=== PATIENT | male | born 1950 | race Caucasian/White ===

== ENCOUNTER → 2017-11-06 10:17 | Outpatient (CLI) | payer MEDICARE, SELFPAY ==
[2017-11-06 11:03] LABS: Add Manual Diff / Slide Review NO; Eosinophils Percent Auto 3.2 % (2-4); Hemoglobin 14.6 g/dL (13.5-17.5); Lymphocytes Percent Auto 22.9 % (25-40); Mean Corpuscular HGB Conc 34.1 % (30-36); Monocytes Percent Auto 9.9 % (3-14); Neutrophils Absolute Auto 3100 /uL (3000-5900); Platelet Count 280 X10^3/uL (150-400); Red Blood Cell Count 4.57 X10^6/uL (4.5-5.9); Red Cell Distribution Width 13.1 % (11.6-14.8); White Blood Cell Count 4.9 X10^3/uL (4.5-11.0)
[2017-11-06 11:33] LABS: Appearance Urine UA CLEAR; Bilirubin Urine UA NEGATIVE (NEGATIVE); Color Urine UA YELLOW; Glucose Urine UA NEGATIVE (Normal); Ketones Urine UA NEGATIVE (NEGATIVE); Leukocyte Esterase Urine UA NEGATIVE (NEGATIVE); Nitrite Urine UA Negative (Negative); Occult Blood Urine UA NEGATIVE (Negative); Protein Urine UA TRACE (Negative); Urobilinogen Urine UA 0.2 E.U./dL (0.2)
[2017-11-06 11:40] LABS: Alanine Aminotransferase 32 IU/L (21-72); Albumin 4.4 g/dL (3.5-5.0); Albumin Globulin Ratio 1.3 (1.0-2.8); Alkaline Phosphatase 93 U/L (38-126); Aspartate Aminotransferase 35 IU/L (17-59); BUN Creatinine Ratio 15.4 (6-22); Bilirubin Total 0.8 mg/dL (0.2-1.3); Blood Urea Nitrogen 20 mg/dL (9-20); Calcium 11.2 mg/dL (8.4-10.2); Carbon Dioxide 29 mmol/L (22-32); Chloride 99 mmol/L (98-107); Cholesterol 228 mg/dL (140-199); Estimated Glomerular Filt Rate 54.7 mL/min (>60); Globulin 3.4 g/dL (1.7-4.1); Glucose 89 mg/dL (80-110); HDL Cholesterol 66 mg/dL (40-60); HEMOLYSIS < 15 (0-50); LDL Cholesterol Calculated 140 mg/dL (<100); Potassium 4.9 mmol/L (3.4-5.1); Sodium 139 mmol/L (137-145); Total Protein 7.8 g/dL (6.3-8.2); Triglycerides 112 mg/dL (35-150)
[2017-11-06 11:57] LABS: Thyroid Stimulating Hormone 2.88 uIU/mL (0.47-4.68)
== END ==
PROVIDERS: Family Provider Family Medicine; PCP Family Medicine; Visit Provider Family Medicine
DX: E78.5 Hyperlipidemia, unspecified (principal); I10 Essential (primary) hypertension; E83.52 Hypercalcemia; E21.3 Hyperparathyroidism, unspecified; Z12.5 Encounter for screening for malignant neoplasm of prostate
CPT/HCPCS: 36415; 80053; 80061; 81003; 84443; 85025; G0103

== ENCOUNTER → 2018-04-13 13:51 | Outpatient (CLI) | payer MEDICARE, SELFPAY ==
[2018-04-13 14:27] LABS: Hematocrit 42.4 % (41-53); Hemoglobin 14.4 g/dL (13.5-17.5)
[2018-04-13 15:03] LABS: HEMOLYSIS < 15 (0-50); Iron 105 ug/dL (49-181)
[2018-04-13 15:04] LABS: Blood Urea Nitrogen 21 mg/dL (9-20); Calcium 11.3 mg/dL (8.4-10.2); Carbon Dioxide 31 mmol/L (22-32); Chloride 101 mmol/L (98-107); Estimated Glomerular Filt Rate 50.2 mL/min (>60); Glucose 78 mg/dL (80-110); HEMOLYSIS < 15 (0-50); Sodium 141 mmol/L (137-145)
[2018-04-13 15:17] LABS: Percent Iron Saturation 34 % (20-50); Total Iron Binding Capacity 311 ug/dL (261-462); Transferrin 256 mg/dL (206-381)
[2018-04-13 15:39] LABS: Ferritin 85.4 ng/mL (17.9-464)
[2018-04-17 14:05] LABS: Parathyroid Hormone Int 61 pg/mL (14-64)
== END ==
PROVIDERS: Family Provider Family Medicine; PCP Family Medicine; Visit Provider Student in an Organized Health Care Education/Training Program
DX: N05.9 Unspecified nephritic syndrome with unspecified morphologic changes (principal); D50.0 Iron deficiency anemia secondary to blood loss (chronic); D64.9 Anemia, unspecified; N25.81 Secondary hyperparathyroidism of renal origin
CPT/HCPCS: 36415; 80048; 82728; 83540; 83550; 83970; 85014; 85018

== ENCOUNTER → 2018-05-21 14:32 | Outpatient (CLI) | payer MEDICARE, SELFPAY ==
[2018-05-21 16:42] LABS: Collection Time Urine 24 Hours; Creatinine 24 Hour Urine 2083 mg/day (1000-2000); Creatinine Urine Random 83.3 mg/dL; Total Volume Urine 2500 mL
[2018-05-21 17:23] LABS: Calcium 24 Hour Urine 205 mg/day (100-300); Calcium Urine Random 8.2; Collection Time Urine 24 Hours; Total Volume Urine 2500 mL
== END ==
PROVIDERS: Family Provider Family Medicine; PCP Family Medicine; Visit Provider Internal Medicine
DX: E21.0 Primary hyperparathyroidism (principal)
CPT/HCPCS: 82340; 82570

== ENCOUNTER → 2018-06-22 13:00 | Outpatient (CLI) | payer MEDICARE, SELFPAY ==
[2018-06-22 14:36] LABS: Alanine Aminotransferase 29 IU/L (21-72); Albumin 4.5 g/dL (3.5-5.0); Albumin Globulin Ratio 1.4 (1.0-2.8); Alkaline Phosphatase 81 U/L (38-126); Aspartate Aminotransferase 35 IU/L (17-59); BUN Creatinine Ratio 14.6 (6-22); Blood Urea Nitrogen 19 mg/dL (9-20); Carbon Dioxide 26 mmol/L (22-32); Chloride 102 mmol/L (98-107); Cholesterol 204 mg/dL (140-199); Estimated Glomerular Filt Rate 54.7 mL/min (>60); Globulin 3.2 g/dL (1.7-4.1); Glucose 90 mg/dL (80-110); HDL Cholesterol 55 mg/dL (40-60); HEMOLYSIS < 15 (0-50); LDL Cholesterol Calculated 129 mg/dL (<100); Potassium 4.6 mmol/L (3.4-5.1); Sodium 137 mmol/L (137-145); Total Protein 7.7 g/dL (6.3-8.2); Triglycerides 101 mg/dL (35-150)
== END ==
PROVIDERS: Family Provider Family Medicine; PCP Family Medicine; Visit Provider Family Medicine
DX: E78.5 Hyperlipidemia, unspecified (principal); I10 Essential (primary) hypertension
CPT/HCPCS: 80053; 80061

== ENCOUNTER → 2018-07-10 11:52 | Outpatient (CLI) | payer MEDICARE, SELFPAY ==
--- NOTE | 2018-07-10 11:54 | DI.US.S_ITS ---
PROCEDURE: US THYROID COMPARISON: Outside Film, NM, NM PARATHYROID WITH SPECT, 06/04/2018, 13:01. INDICATIONS: Hypercalcemia, parathyroid scan performed 06/04/18 identifying a high probability for presence of parathyroid adenoma inferior to the lower margin of the right thyroid lobe. FINDINGS: Thyroid scanning was performed bilaterally, with attention to the area of prior nuclear medicine concern for parathyroid adenoma inferior to the right thyroid lobe margin. The right thyroid lobe measures 1.2 x 1.6 x 4.6 cm and at its lower third contains a nodule which measures up to 1.4 x 0.9 1.5 cm it is solid, hypoechoic, smoothly marginated, and contains no identifiable internal calcifications. Inferior to the right thyroid lobe is a nodule discrete and separate from the thyroid parenchyma, measuring 1.1 x 0.7 x 0.5 cm that is solid, markedly hypoechoic, smoothly marginated and free of calcifications. This structure is a presumptive parathyroid adenoma. The left thyroid lobe measures 1.3 x 1.2 x 5.0 cm, and contains 3 small nodules one at the upper cava and at the middle, and at the lower third of the gland. This solid nodules measure 4 x 6 x 6 mm superiorly, 5 x 5 x 7 mm at the middle third, and 2 x 2 by 4 mm at the inferior third. IMPRESSION: 1. Parathyroid adenoma identified at the area beneath the inferior tip of the right thyroid lobe corresponding with the abnormality seen on nuclear medicine parathyroid scan 06/04/18. This structure measures up to 1.1 x 0.7 x 0.5 cm and is prominently hypoechoic as is the usual appearance by ultrasound of parathyroid adenomas. 2. Benign-appearing bilateral thyroid nodules are present elsewhere as discussed above. Dictated by: Maldonado Lucas M.D. on 07/12/2018 at 15:17 Approved by: Maldonado Lucas M.D. on 07/12/2018 at 15:22
== END ==
PROVIDERS: Family Provider Family Medicine; PCP Family Medicine; Visit Provider Otolaryngology
DX: D35.1 Benign neoplasm of parathyroid gland (principal); E83.52 Hypercalcemia; E04.2 Nontoxic multinodular goiter
CPT/HCPCS: 76536

== ENCOUNTER → 2018-08-16 14:50 | Outpatient (CLI) | payer MEDICARE, SELFPAY ==
[2018-08-16 16:29] LABS: Calcium 11.4 mg/dL (8.4-10.2); Estimated Glomerular Filt Rate 50.2 mL/min (>60)
[2018-08-18 15:12] LABS: Parathyroid Hormone Int 72 pg/mL (14-64)
== END ==
PROVIDERS: Family Provider Family Medicine; PCP Family Medicine; Visit Provider Otolaryngology
DX: E21.0 Primary hyperparathyroidism (principal); D35.1 Benign neoplasm of parathyroid gland
CPT/HCPCS: 36415; 82310; 82565; 83970

== ENCOUNTER → 2018-08-17 11:07 | Outpatient (CLI) | payer MEDICARE, SELFPAY ==
--- NOTE | 2018-08-17 | DI.CT.S_ITS ---
PROCEDURE: CT SOFT TISSUE NECK WO/W CON INDICATIONS: Primary hyperparathyroidism TECHNIQUE: Before and after the administration of intravenous contrast, 2.0 mm axial sections acquired through the neck and down to the phil. Additional 2.0 mm coronal and sagittal reformats were generated of the contrast enhanced images. For radiation dose reduction, the following was used: automated exposure control. COMPARISON: Outside Film, NM, NM PARATHYROID WITH SPECT, 06/04/2018, 13:01. FINDINGS: Image quality: Excellent. Parathyroid: There is a 8 x 5 x 9 mm nodule adjacent to the posterior-inferior margin of the right lobe of the thyroid gland (series 8, image 51; series 10, image 71) that demonstrates imaging characteristics compatible with parathyroid adenoma. No additional enhancing nodules with delayed washout identified in the neck soft tissues. Thyroid: Thyroid gland has normal size and contour. No thyroid nodules identified. Lymph nodes: No enlarged lymph nodes seen throughout the neck. Vessels: Visualized vasculature appears patent. Neck spaces: Mucosal prominence noted in the lateral right oropharyngeal wall. The nasopharynx, and pharynx demonstrate no mucosal lesions. The vocal cords, false vocal cords, pyriform sinuses, epiglottis, vallecula, and tongue base all appear normal. Extramucosal spaces appear unremarkable. Glands: The parotid and submandibular glands appear normal. Miscellaneous: Visualized lungs appear clear. Superficial soft tissues appear normal. Patient is status post bilateral scleral banding. Bones: No suspicious bony lesions. Spine degenerative disc disease and facet arthropathy. Visualized sinuses and mastoids appear unremarkable. IMPRESSION: 1. 8 x 5 x 9 mm nodule adjacent to the posterior inferior margin of the right lobe of the thyroid gland with imaging characteristics compatible with parathyroid adenoma. 2. Mucosal prominence involving the right lateral oropharyngeal wall. Recommend correlation with direct visualization. Dictated by: Jazmin Lopez MD, PhD on 08/17/2018 at 14:29 Approved by: Jazmin Lopez MD, PhD on 08/17/2018 at 14:41
== END ==
PROVIDERS: PCP Family Medicine; Visit Provider Otolaryngology
DX: E21.0 Primary hyperparathyroidism (principal); E83.52 Hypercalcemia; D35.1 Benign neoplasm of parathyroid gland; E04.1 Nontoxic single thyroid nodule
CPT/HCPCS: 70492; Q9967

== ENCOUNTER → 2018-09-21 14:16 | Outpatient (CLI) | payer MEDICARE, SELFPAY ==
[2018-09-21 15:07] LABS: Calcium 9.3 mg/dL (8.4-10.2)
== END ==
PROVIDERS: PCP Family Medicine; Visit Provider Otolaryngology
DX: E83.52 Hypercalcemia (principal)
CPT/HCPCS: 36415; 82310

== ENCOUNTER → 2019-02-14 11:12 | Outpatient (CLI) | payer MEDICARE, SELFPAY ==
[2019-02-14 12:55] LABS: Alanine Aminotransferase 22 IU/L (21-72); Albumin 4.5 g/dL (3.5-5.0); Albumin Globulin Ratio 1.5 (1.0-2.8); Alkaline Phosphatase 84 U/L (38-126); Aspartate Aminotransferase 30 IU/L (17-59); BUN Creatinine Ratio 18.2 (6-22); Bilirubin Total 0.8 mg/dL (0.2-1.3); Blood Urea Nitrogen 31 mg/dL (9-20); Calcium 9.8 mg/dL (8.4-10.2); Carbon Dioxide 28 mmol/L (22-32); Chloride 99 mmol/L (98-107); Cholesterol 235 mg/dL (140-199); Glucose 92 mg/dL (80-110); HDL Cholesterol 60 mg/dL (40-60); HEMOLYSIS < 15 (0-50); LDL Cholesterol Calculated 149 mg/dL (<100); Sodium 137 mmol/L (137-145); Total Protein 7.5 g/dL (6.3-8.2); Triglycerides 128 mg/dL (35-150)
== END ==
PROVIDERS: PCP Family Medicine; Visit Provider Family Medicine
DX: E78.5 Hyperlipidemia, unspecified (principal); I10 Essential (primary) hypertension
CPT/HCPCS: 36415; 80053; 80061

== ENCOUNTER → 2019-04-04 11:11 | Outpatient (CLI) | payer MEDICARE, SELFPAY ==
[2019-04-04 12:36] LABS: Add Manual Diff / Slide Review NO; Basophils Absolute Auto 100 /uL (0-100); Basophils Percent Auto 1.2 % (0-2); Eosinophils Absolute Auto 200 /uL (0-450); Eosinophils Percent Auto 3.5 % (2-4); Hematocrit 39.9 % (41-53); Hemoglobin 13.4 g/dL (13.5-17.5); Lymphocytes Absolute Auto 1100 /uL (1100-4500); Lymphocytes Percent Auto 23.6 % (25-40); Mean Corpuscular HGB Conc 33.7 % (30-36); Mean Corpuscular Hemoglobin 31.6 PG (26-34); Mean Corpuscular Volume 93.8 fL (80-100); Monocytes Absolute Auto 500 /uL (0-900); Monocytes Percent Auto 10.7 % (3-14); Neutrophils Absolute Auto 2800 /uL (1500-7000); Platelet Count 284 X10^3/uL (150-400); Red Blood Cell Count 4.25 X10^6/uL (4.5-5.9); Red Cell Distribution Width 12.8 % (11.6-14.8); White Blood Cell Count 4.6 X10^3/uL (4.5-11.0)
[2019-04-04 13:04] LABS: Alanine Aminotransferase 25 IU/L (21-72); Albumin 4.6 g/dL (3.5-5.0); Albumin Globulin Ratio 1.8 (1.0-2.8); Alkaline Phosphatase 70 U/L (38-126); Aspartate Aminotransferase 35 IU/L (17-59); BUN Creatinine Ratio 19.2 (6-22); Bilirubin Total 0.8 mg/dL (0.2-1.3); Blood Urea Nitrogen 25 mg/dL (9-20); Calcium 9.6 mg/dL (8.4-10.2); Carbon Dioxide 30 mmol/L (22-32); Chloride 99 mmol/L (98-107); Cholesterol 198 mg/dL (140-199); Estimated Glomerular Filt Rate 54.6 mL/min (>60); Globulin 2.5 g/dL (1.7-4.1); Glucose 91 mg/dL (80-110); HDL Cholesterol 60 mg/dL (40-60); HEMOLYSIS < 15 (0-50); LDL Cholesterol Calculated 115 mg/dL (<100); Potassium 4.8 mmol/L (3.4-5.1); Sodium 138 mmol/L (137-145); Total Protein 7.1 g/dL (6.3-8.2); Triglycerides 115 mg/dL (35-150)
== END ==
PROVIDERS: PCP Family Medicine; Visit Provider Family Medicine
DX: E78.5 Hyperlipidemia, unspecified (principal); F32.9 Major depressive disorder, single episode, unspecified; G47.00 Insomnia, unspecified; I10 Essential (primary) hypertension; N18.9 Chronic kidney disease, unspecified; Z86.73 Personal history of transient ischemic attack (TIA), and cerebral infarction without residual deficits
CPT/HCPCS: 36415; 80053; 80061; 85025

== ENCOUNTER → 2019-06-28 10:07 | Outpatient (CLI) | payer MEDICARE, SELFPAY ==
[2019-06-28 10:49] LABS: Add Manual Diff / Slide Review NO; Basophils Absolute Auto 100 /uL (0-100); Basophils Percent Auto 1.1 % (0-2); Eosinophils Absolute Auto 200 /uL (0-450); Eosinophils Percent Auto 4.1 % (2-4); Hematocrit 39.9 % (41-53); Hemoglobin 13.6 g/dL (13.5-17.5); Lymphocytes Absolute Auto 1200 /uL (1100-4500); Lymphocytes Percent Auto 26.4 % (25-40); Mean Corpuscular Hemoglobin 31.6 PG (26-34); Monocytes Absolute Auto 500 /uL (0-900); Monocytes Percent Auto 11.7 % (3-14); Neutrophils Absolute Auto 2600 /uL (1500-7000); Neutrophils Percent Auto 56.7 % (50-75); Platelet Count 269 X10^3/uL (150-400); Red Blood Cell Count 4.29 X10^6/uL (4.5-5.9); Red Cell Distribution Width 13.1 % (11.6-14.8); White Blood Cell Count 4.5 X10^3/uL (4.5-11.0)
[2019-06-28 11:17] LABS: Alanine Aminotransferase 23 IU/L (<50); Albumin 4.3 g/dL (3.5-5.0); Albumin Globulin Ratio 1.4 (1.0-2.8); Alkaline Phosphatase 78 U/L (38-126); Aspartate Aminotransferase 34 IU/L (17-59); BUN Creatinine Ratio 19.3 (6-22); Bilirubin Total 0.8 mg/dL (0.2-1.3); Blood Urea Nitrogen 27 mg/dL (9-20); Calcium 9.7 mg/dL (8.4-10.2); Carbon Dioxide 26 mmol/L (22-32); Chloride 100 mmol/L (98-107); Cholesterol 195 mg/dL (140-199); Estimated Glomerular Filt Rate 50.1 mL/min (>60); Globulin 3.1 g/dL (1.7-4.1); Glucose 89 mg/dL (80-110); HDL Cholesterol 58 mg/dL (40-60); HEMOLYSIS < 15 (0-50); LDL Cholesterol Calculated 115 mg/dL (<100); Potassium 4.5 mmol/L (3.4-5.1); Sodium 136 mmol/L (137-145); Total Protein 7.4 g/dL (6.3-8.2); Triglycerides 110 mg/dL (35-150)
== END ==
PROVIDERS: PCP Family Medicine; Visit Provider Family Medicine
DX: E78.5 Hyperlipidemia, unspecified (principal); I10 Essential (primary) hypertension; N18.9 Chronic kidney disease, unspecified
CPT/HCPCS: 36415; 80053; 80061; 85025

== ENCOUNTER → 2019-10-11 09:35 | Outpatient (CLI) | payer MEDICARE, SELFPAY ==
[2019-10-11 11:35] LABS: Alanine Aminotransferase 22 IU/L (<50); Albumin 4.4 g/dL (3.5-5.0); Albumin Globulin Ratio 1.4 (1.0-2.8); Alkaline Phosphatase 80 U/L (38-126); Aspartate Aminotransferase 35 IU/L (17-59); BUN Creatinine Ratio 15.8 (6-22); Bilirubin Total 0.7 mg/dL (0.2-1.3); Blood Urea Nitrogen 24 mg/dL (9-20); Calcium 9.5 mg/dL (8.4-10.2); Carbon Dioxide 30 mmol/L (22-32); Chloride 101 mmol/L (98-107); Estimated Glomerular Filt Rate 45.4 mL/min (>60); Globulin 3.1 g/dL (1.7-4.1); Glucose 90 mg/dL (80-110); HEMOLYSIS < 15 (0-50); Phosphorous 3.3 mg/dL (2.3-3.7); Potassium 4.7 mmol/L (3.4-5.1); Sodium 137 mmol/L (137-145); Total Protein 7.5 g/dL (6.3-8.2); Uric Acid 7.1 mg/dL (3.5-8.5)
[2019-10-11 16:51] LABS: Creatinine Urine Random 236.8 mg/dL; Protein (Total) Urine Random 17 mg/dL (0-12); Protein Creatinine Ratio Urine 0.07 GRAM/24H
== END ==
PROVIDERS: PCP Family Medicine; Referring Provider Internal Medicine Nephrology; Visit Provider Internal Medicine Nephrology
DX: N18.3 Chronic kidney disease, stage 3 (moderate) (principal)
CPT/HCPCS: 36415; 80053; 82570; 84100; 84156; 84550

== ENCOUNTER → 2020-01-27 09:58 | Outpatient (CLI) | payer MEDICARE, SELFPAY ==
[2020-01-27 10:22] LABS: Add Manual Diff / Slide Review NO; Basophils Absolute Auto 0 /uL (0-100); Basophils Percent Auto 0.8 % (0-2); Eosinophils Absolute Auto 100 /uL (0-450); Eosinophils Percent Auto 2.7 % (2-4); Hemoglobin 13.1 g/dL (13.5-17.5); Lymphocytes Absolute Auto 1100 /uL (1100-4500); Lymphocytes Percent Auto 19.5 % (25-40); Mean Corpuscular HGB Conc 33.7 % (30-36); Mean Corpuscular Hemoglobin 31.7 PG (26-34); Monocytes Absolute Auto 500 /uL (0-900); Monocytes Percent Auto 8.5 % (3-14); Neutrophils Absolute Auto 3800 /uL (1500-7000); Neutrophils Percent Auto 68.5 % (50-75); Platelet Count 281 X10^3/uL (150-400); Red Blood Cell Count 4.15 X10^6/uL (4.5-5.9); Red Cell Distribution Width 12.5 % (11.6-14.8); White Blood Cell Count 5.5 X10^3/uL (4.5-11.0)
[2020-01-27 10:36] LABS: Alanine Aminotransferase 23 IU/L (<50); Albumin 4.3 g/dL (3.5-5.0); Albumin Globulin Ratio 1.4 (1.0-2.8); Alkaline Phosphatase 80 U/L (38-126); Aspartate Aminotransferase 36 IU/L (17-59); BUN Creatinine Ratio 15.1 (6-22); Bilirubin Total 0.8 mg/dL (0.2-1.3); Blood Urea Nitrogen 22 mg/dL (9-20); Calcium 8.8 mg/dL (8.4-10.2); Carbon Dioxide 27 mmol/L (22-32); Chloride 103 mmol/L (98-107); Cholesterol 186 mg/dL (140-199); Estimated Glomerular Filt Rate 47.6 mL/min (>60); Globulin 3.1 g/dL (1.7-4.1); Glucose 94 mg/dL (80-110); HDL Cholesterol 58 mg/dL (40-60); HEMOLYSIS < 15 (0-50); LDL Cholesterol Calculated 99 mg/dL (<100); Potassium 4.5 mmol/L (3.4-5.1); Sodium 136 mmol/L (137-145); Total Protein 7.4 g/dL (6.3-8.2); Triglycerides 146 mg/dL (35-150)
[2020-01-27 11:07] LABS: Prostate Specific Antigen Scrn 1.06 ng/mL (0.1-4.0)
== END ==
PROVIDERS: PCP Family Medicine; Referring Provider Family Medicine; Visit Provider Family Medicine
DX: E21.3 Hyperparathyroidism, unspecified (principal); E78.5 Hyperlipidemia, unspecified; I10 Essential (primary) hypertension; N18.9 Chronic kidney disease, unspecified; Z12.5 Encounter for screening for malignant neoplasm of prostate
CPT/HCPCS: 36415; 80053; 80061; 85025; G0103

== ENCOUNTER → 2020-11-09 08:59 | Outpatient (CLI) | payer MEDICARE, SELFPAY ==
[2020-11-09 09:59] LABS: Add Manual Diff / Slide Review NO; Basophils Absolute Auto 100 /uL (0-100); Basophils Percent Auto 1.3 % (0-2); Eosinophils Absolute Auto 200 /uL (0-450); Eosinophils Percent Auto 4.4 % (2-4); Hematocrit 39.2 % (41-53); Hemoglobin 13.3 g/dL (13.5-17.5); Lymphocytes Absolute Auto 1100 /uL (1100-4500); Lymphocytes Percent Auto 26.3 % (25-40); Mean Corpuscular HGB Conc 34.1 % (30-36); Mean Corpuscular Hemoglobin 32.3 PG (26-34); Mean Corpuscular Volume 94.7 fL (80-100); Monocytes Absolute Auto 500 /uL (0-900); Monocytes Percent Auto 11.8 % (3-14); Neutrophils Absolute Auto 2400 /uL (1500-7000); Neutrophils Percent Auto 56.2 % (50-75); Platelet Count 282 X10^3/uL (150-400); Red Blood Cell Count 4.14 X10^6/uL (4.5-5.9); Red Cell Distribution Width 12.9 % (11.6-14.8); White Blood Cell Count 4.3 X10^3/uL (4.5-11.0)
[2020-11-09 10:37] LABS: Alanine Aminotransferase 26 IU/L (<50); Albumin 4.1 g/dL (3.5-5.0); Albumin Globulin Ratio 1.4 (1.0-2.8); Alkaline Phosphatase 91 U/L (38-126); Aspartate Aminotransferase 36 IU/L (17-59); BUN Creatinine Ratio 20.2 (6-22); Bilirubin Total 0.5 mg/dL (0.2-1.3); Blood Urea Nitrogen 33 mg/dL (9-20); Calcium 9.8 mg/dL (8.4-10.2); Carbon Dioxide 26 mmol/L (22-32); Chloride 102 mmol/L (98-107); Cholesterol 197 mg/dL (140-199); Estimated Glomerular Filt Rate 41.8 mL/min (>60); Glucose 95 mg/dL (80-110); HDL Cholesterol 69 mg/dL (40-60); HEMOLYSIS < 15 (0-50); LDL Cholesterol Calculated 109 mg/dL (<100); Potassium 4.5 mmol/L (3.4-5.1); Sodium 134 mmol/L (137-145); Total Protein 7.1 g/dL (6.3-8.2); Triglycerides 93 mg/dL (35-150)
[2020-11-09 11:00] LABS: Prostate Specific Antigen Scrn 1.21 ng/mL (0.1-4.0)
== END ==
PROVIDERS: PCP Family Medicine; Referring Provider Family Medicine; Visit Provider Family Medicine
DX: E78.5 Hyperlipidemia, unspecified (principal); Z12.5 Encounter for screening for malignant neoplasm of prostate; I10 Essential (primary) hypertension
CPT/HCPCS: 36415; 80053; 80061; 85025; G0103

== ENCOUNTER → 2021-02-09 09:42 | Outpatient (CLI) | payer MEDICARE, SELFPAY ==
[2021-02-09 10:47] LABS: Alanine Aminotransferase 22 IU/L (<50); Albumin 4.5 g/dL (3.5-5.0); Albumin Globulin Ratio 1.5 (1.0-2.8); Alkaline Phosphatase 91 U/L (38-126); Aspartate Aminotransferase 34 IU/L (17-59); BUN Creatinine Ratio 18.8 (6-22); Bilirubin Total 0.7 mg/dL (0.2-1.3); Blood Urea Nitrogen 27 mg/dL (9-20); Calcium 9.4 mg/dL (8.4-10.2); Carbon Dioxide 29 mmol/L (22-32); Chloride 103 mmol/L (98-107); Cholesterol 219 mg/dL (140-199); Estimated Glomerular Filt Rate 48.2 mL/min (>60); Glucose 99 mg/dL (80-110); HDL Cholesterol 62 mg/dL (40-60); HEMOLYSIS < 15 (0-50); LDL Cholesterol Calculated 127 mg/dL (<100); Potassium 4.3 mmol/L (3.4-5.1); Sodium 136 mmol/L (137-145); Total Protein 7.5 g/dL (6.3-8.2); Triglycerides 148 mg/dL (35-150)
== END ==
PROVIDERS: PCP Family Medicine; Referring Provider Family Medicine; Visit Provider Family Medicine
DX: N18.9 Chronic kidney disease, unspecified (principal); E78.5 Hyperlipidemia, unspecified
CPT/HCPCS: 36415; 80053; 80061

== ENCOUNTER → 2021-03-24 09:25 | Outpatient (CLI) | payer MEDICARE, SELFPAY ==
[2021-03-24 10:59] LABS: COVID19 -Nasal RAPID Negative (Negative)
== END ==
PROVIDERS: PCP Family Medicine; Visit Provider Surgery
DX: Z01.812 Encounter for preprocedural laboratory examination (principal); Z20.822 Contact with and (suspected) exposure to COVID-19
CPT/HCPCS: 87635; C9803

== ENCOUNTER 2021-03-25 11:57 | Day surgery (SDC) | payer MEDICARE, SELFPAY ==
[2021-03-25 12:19] VITALS: BP 130/81; PULSE 80; RESP 16; TEMP 36.4; O2SAT 99; BMI 28.2
[2021-03-25] MEDS: LACTATED RINGERS 1,000 ML 200 ML IV (12:33)
--- NOTE | 2021-03-25 13:03 | PM.HP.1 ---
History of Present Illness History of Present Illness Date Patient Seen: 03/25/21 Time Patient Seen: 13:03 Chief complaint: SDC Narrative: The patient presents for colorectal sreening. Previous examination was approximately 10 years ago. No personal or family history of colon cancer. On further history denies any recent gastrointestinal symptoms. No nausea, vomiting, abdominal pain, loss of appetite, unexplained weight loss, change in bowel habits, diarrhea, constipation, melena, hematochezia, or bright red blood per rectum. Patient History Medical History ADHD (attention deficit hyperactivity disorder) (Unknown) Arthritis (Unknown) Asthma (Unknown) CKD (chronic kidney disease) (Unknown) Depression (Unknown) Detached retina (Unknown) Gastritis Hypercalcemia (09/27/16) Hyperlipemia (Unknown) Hyperparathyroidism (09/27/16) Hypertension (Unknown) Left buttock pain Lumbar region somatic dysfunction Nausea & vomiting Neuropathy (Unknown) Numbness of left foot Pelvic somatic dysfunction Sacral region somatic dysfunction Scoliosis (Unknown) Segmental and somatic dysfunction of abdomen and other regions Stroke (Unknown) Varicose vein of leg Surgical History H/O parathyroidectomy History of cataract removal with insertion of prosthetic lens History of vasectomy Hx of right knee surgery (Unknown) Hx of shoulder surgery (Unknown) Status post colonoscopy Status post eye surgery Status post knee surgery Family & Social History Family History Father Cancer Mother No problems noted. Sister Heart disease Social History: household members significant other Tobacco & Substance use: Smoking Status Never smoker alcohol intake current Substance Use Type does not use Meds Home Medications and Allergies Home Medications Medication Instructions Recorded Confirmed Type albuterol sulfate 90 mcg/actuation 2 puff INHALATION QID PRN #18 gram 10/03/18 02/10/21 Rx aerosol inhaler hydrochlorothiazide 25 mg tablet 25 mg PO DAILY PRN #30 tab 04/09/19 02/10/21 Rx simvastatin 40 mg tablet 40 mg PO DAILY #90 tab 11/10/20 02/10/21 Rx clopidogrel 75 mg tablet See Rx Instructions .ROUTE 12/11/20 02/10/21 Rx .COMPLEX #90 tab citalopram 20 mg tablet See Rx Instructions .ROUTE 03/11/21 Rx .COMPLEX #90 tab lisinopril 2.5 mg tablet See Rx Instructions .ROUTE 03/11/21 Rx .COMPLEX #90 tab trazodone 50 mg tablet See Rx Instructions .ROUTE 03/15/21 Rx .COMPLEX #90 tab Allergies Allergy/AdvReac Type Severity Reaction Status Date / Time atomoxetine [From STRATTERA] Allergy Unknown Verified 03/25/21 12:16 Exam Vital Signs (past 8 hours): - 03/25/21 12:19 Temperature 97.5 F L Pulse Rate 80 Respiratory Rate 16 Blood Pressure 130/81 Pulse Oximetry 99 Oxygen Delivery Method Room Air Narrative Exam Narrative: Constitutional-he is oriented to person, place and time. No apparent distress Cardiovascular- regular rate, no peripheral edema Pulmonary-unlabored respiratory effort, no audible wheezing Abdominal-soft, non-tender, non-distended Musculoskeletal-no cyanosis or clubbing Neurological-nonfocal, normal strength throughout, Skin-warm and dry Assessment & Plan Assessment & Plan narrative: The patient requires colorectal screening and colonoscopy is recommended. Technical details were discussed. Risks, benefits, alternatives explained. Risks including but not limited to myocardial infarction, aspiration, bleeding, pain, missed lesion, incomplete examination, need for further radiographic studies, colonic perforation, and need for major abdominal surgery were discussed. All questions were answered to their satisfaction, and they are in agreement with this plan. Time Spent With Patient Critical Care time: I spent a total of [] minutes of critical care time on this patient's care today; this time is exclusive of procedural time.
--- NOTE | 2021-03-25 13:31 | PM.OP.COLON ---
Operative Date/Time/Diagnoses Date of procedure: 03/25/21 Time of procedure: 13:31 Pre-op diagnosis: Screening colonoscopy Post-op diagnosis: same Procedure & Clinicians Study performed: Colonoscopy Same procedure as scheduled: Yes Indications: Screening Surgeon: Jeffrey Benjamin Procedure Notes Procedure in detail: Medications: Conscious sedation using 6mg IV midazolam and 150mcg IV of fentanyl The history and physical was performed/updated and the patient is ASA class is 2. The procedure was discussed in detail with the patient. Potential risks complications including infection, bleeding, missed diagnosis, perforation, need for surgery, and were explained. Their questions were answered and informed consent was obtained. Patient was brought to the procedure room and placed standard monitoring equipment. The patient's vital signs were monitored continuously throughout the entire procedure. Prior to starting time-out was performed. The patient was placed in the left lateral recumbent position. Procedural sedation was administered. Examination began with a thorough inspection of the perianal area there was no evidence of fissures, fistulae, external hemorrhoids or cutaneous malignancy. The colonoscopy scope was then placed into the anal canal and was advanced to the cecum, which was identified by the ileocecal valve, the appendiceal orifice and the confluence of the taenia. The scope was then slowly withdrawn examining colon thoroughly in all directions, irrigating it of any residual stool. FINDINGS 1. 5 Mm polyp within the transverse colon within a deep mucosal fold. Appears benign but was unable to retrieve biopsy forceps secondary to its position 2. Sigmoid diverticulosis 3. Grade 2 internal hemorrhoids The patient tolerated the procedure well. They will be discharged once criteria are met. The prep was of good/excellent quality. The withdrawl time was 7 minutes. The sedation time was 25 minutes. Specimen(s): none sent Complications: none Impression: colonic polyp Post-procedure Recommendations: Colonoscopy in 5 years Disposition: same day surgery
[2021-03-25] MEDS: MIDAZOLAM 5 MG/5 ML VIAL IV (13:33)
[2021-03-25 13:34] VITALS: BP 123/84; PULSE 66; RESP 14; TEMP 36.8; O2SAT 95
[2021-03-25] MEDS: fentaNYL 250 MCG/5 ML INJ IV (13:34)
[2021-03-25 13:39] VITALS: BP 111/80; PULSE 66; RESP 12; O2SAT 95
[2021-03-25 13:45] VITALS: BP 120/87; PULSE 70; RESP 15; O2SAT 96
[2021-03-25 13:47] VITALS: BP 124/82; PULSE 70; RESP 14; TEMP 36.8; O2SAT 96
== END 2021-03-25 14:01 | disposition home or self-care (01) ==
PROVIDERS: PCP Family Medicine; Referring Provider Surgery; Visit Provider Surgery
PROC: 0DJD8ZZ Inspection of Lower Intestinal Tract, Via Natural or Artificial Opening Endoscopic (ICD-10-PCS; CPT 45378; principal; 2021-03-25 13:00)
DX: Z12.11 Encounter for screening for malignant neoplasm of colon (principal); K57.30 Diverticulosis of large intestine without perforation or abscess without bleeding; K64.1 Second degree hemorrhoids; K63.5 Polyp of colon
CPT/HCPCS: G0121; 99152; 99153; J2250; J3010

== ENCOUNTER → 2021-10-19 09:49 | Outpatient (CLI) | payer MEDICARE, SELFPAY ==
[2021-10-19 10:54] LABS: Add Manual Diff / Slide Review NO; Basophils Absolute Auto 100 /uL (0-100); Basophils Percent Auto 1.2 % (0-2); Eosinophils Absolute Auto 200 /uL (0-450); Eosinophils Percent Auto 3.9 % (2-4); Hematocrit 39.4 % (41-53); Hemoglobin 13.6 g/dL (13.5-17.5); Lymphocytes Absolute Auto 1000 /uL (1100-4500); Mean Corpuscular HGB Conc 34.5 % (30-36); Mean Corpuscular Hemoglobin 32.1 PG (26-34); Mean Corpuscular Volume 92.9 fL (80-100); Monocytes Absolute Auto 500 /uL (0-900); Monocytes Percent Auto 10.2 % (3-14); Neutrophils Absolute Auto 2900 /uL (1500-7000); Neutrophils Percent Auto 62.7 % (50-75); Platelet Count 267 X10^3/uL (150-400); Red Blood Cell Count 4.24 X10^6/uL (4.5-5.9); Red Cell Distribution Width 12.9 % (11.6-14.8); White Blood Cell Count 4.6 X10^3/uL (4.5-11.0)
[2021-10-19 11:27] LABS: Alanine Aminotransferase 23 IU/L (<50); Albumin 4.4 g/dL (3.5-5.0); Albumin Globulin Ratio 1.5 (1.0-2.8); Alkaline Phosphatase 89 U/L (38-126); Aspartate Aminotransferase 32 IU/L (17-59); BUN Creatinine Ratio 17.2 (6-22); Bilirubin Total 0.7 mg/dL (0.2-1.3); Blood Urea Nitrogen 28 mg/dL (9-20); Calcium 9.5 mg/dL (8.4-10.2); Carbon Dioxide 27 mmol/L (22-32); Chloride 103 mmol/L (98-107); Cholesterol 198 mg/dL (140-199); Estimated Glomerular Filt Rate 44 mL/min (>60); Globulin 2.9 g/dL (1.7-4.1); Glucose 93 mg/dL (80-110); HDL Cholesterol 62 mg/dL (40-60); HEMOLYSIS < 15 (0-50); LDL Cholesterol Calculated 114 mg/dL (<100); Potassium 4.4 mmol/L (3.4-5.1); Sodium 138 mmol/L (137-145); Total Protein 7.3 g/dL (6.3-8.2); Triglycerides 110 mg/dL (35-150)
[2021-10-19 11:56] LABS: Prostate Specific Antigen Scrn 1.21 ng/mL (0.1-4.0)
== END ==
PROVIDERS: PCP Family Medicine; Referring Provider Family Medicine; Visit Provider Family Medicine
DX: E78.2 Mixed hyperlipidemia (principal); Z12.5 Encounter for screening for malignant neoplasm of prostate; I10 Essential (primary) hypertension; K52.9 Noninfective gastroenteritis and colitis, unspecified; N18.32 Chronic kidney disease, stage 3b; N25.0 Renal osteodystrophy
CPT/HCPCS: 36415; 80053; 80061; 85025; G0103

== ENCOUNTER 2021-12-06 12:35 | Emergency (ER) | payer MEDICARE, SELFPAY ==
[2021-12-06 13:12] VITALS: BP 143/80; PULSE 61; RESP 22; TEMP 37.2; O2SAT 98; BMI 28.8
--- NOTE | 2021-12-06 13:16 | DI.RAD.S_ITS ---
PROCEDURE: XR CHEST 2V INDICATIONS: cough TECHNIQUE: 2 views of the chest were acquired. COMPARISON: [facility], , CHEST 2 VIEW, 06/07/2016, 15:08. FINDINGS: Surgical changes and devices: None. Lungs and pleura: Lungs are clear. No pleural effusions or pneumothorax. Mediastinum: Mediastinal contours are normal. Heart size is normal. Bones and chest wall: No suspicious bony abnormalities. There is S shaped scoliosis of the thoracic spine. Soft tissues appear unremarkable. IMPRESSION: No acute cardiopulmonary abnormality. Dictated by: Baltazar Mckeon M.D. on 12/06/2021 at 12:55 Approved by: Baltazar Mckeon M.D. on 12/06/2021 at 12:55
[2021-12-06 14:02] LABS: COVID19 -Nasal RAPID Negative (Negative)
--- NOTE | 2021-12-06 14:58 | ED_ITS ---
HPI - URI/Sore Throat <DARRYL Lassiter - Last Filed: 12/06/21 15:03> General Chief Complaint: Upper Respiratory Symptoms Stated Complaint: has a cold for over a week- not getting better Time Seen by Provider: 12/06/21 14:41 Source: patient Mode of arrival: Family Vehicle History of Present Illness HPI Narrative: This is a 71 year presents to the emergency department complaining of cough and congestion for two weeks after a viral illness. Patient denies any facial tenderness, denies any nausea vomiting or recent fever. He endorses having phlegm in the morning and coughs throughout the day. He states that he has had seasonal allergies as but not in the past. Denies any history of COPD, CHF, or smoking. He denies significant fatigue, shortness of breath, shortness of breath with exertion. He denies any difficulty swallowing, weakness, lightheadedness, sinus tenderness, or sore throat. States that he has tested himself for COVID multiple times and they were negative. Related Data Previous Rx's Medication Instructions Recorded trazodone 50 mg tablet See Rx Instructions .Route 09/06/21 .COMPLEX #90 tabs citalopram 20 mg tablet See Rx Instructions .Route 09/07/21 .COMPLEX #90 tabs clopidogrel 75 mg tablet See Rx Instructions .Route 09/07/21 .COMPLEX #90 tabs lisinopril 2.5 mg tablet See Rx Instructions .Route 09/07/21 .COMPLEX #90 tabs atorvastatin 20 mg tablet 20 mg PO BEDTIME #90 tabs 11/19/21 benzocaine 15 mg-menthol 3.6 mg 1 roland mucous membrane Q2-4H PRN 12/06/21 lozenges (Cepacol Sore Throat sore throat #16 ea (benzocaine-menthol)) cetirizine 10 mg tablet 10 mg PO BEDTIME congestion #30 12/06/21 tabs fluticasone propionate 50 1 spray intranasal BID PRN nasal 12/06/21 mcg/actuation nasal congestion 2 weeks #16 grams spray,suspension prednisone 20 mg tablet 40 mg PO DAILY 5 days #10 tabs 12/06/21 Allergies Allergy/AdvReac Type Severity Reaction Status Date / Time atomoxetine [From STRATTERA] Allergy Unknown Verified 12/06/21 13:16 Review of Systems <DARRYL Lassiter - Last Filed: 12/06/21 15:03> Review of Systems Narrative: General: denies fever, chills, malaise, sweats, fatigue Head/Neck: denies headache, neck pain, dizziness Eyes: denies visual changes, eye pain Cardio: denies chest pain, palpitations, edema Respiratory: denies dyspnea, endorses congestion, a productive cough in the mornings, denies shortness of breath GI: denies abdominal pain, nausea, vomiting, or diarrhea : denies dysuria, hematuria, urinary retention, frequency or incontinence MSK: denies joint pain, muscle weakness Skin: denies rash, itching, skin lesions or other Neuro: denies numbness, tingling Patient History <DARRYL Lassiter - Last Filed: 12/06/21 15:03> Medical History ADHD (attention deficit hyperactivity disorder) (Unknown) Arthritis (Unknown) Asthma (Unknown) Chronic diarrhea CKD (chronic kidney disease) (Unknown) Depression (Unknown) Detached retina (Unknown) Gastritis Hypercalcemia (09/27/16) Hyperlipemia (Unknown) Hyperparathyroidism (09/27/16) Hypertension (Unknown) Left buttock pain Lumbar region somatic dysfunction Nausea & vomiting Neuropathy (Unknown) Numbness of left foot Pelvic somatic dysfunction Sacral region somatic dysfunction Scoliosis (Unknown) Screening for prostate cancer Segmental and somatic dysfunction of abdomen and other regions Stroke (Unknown) Varicose vein of leg Surgical History H/O parathyroidectomy History of cataract removal with insertion of prosthetic lens History of vasectomy Hx of right knee surgery (Unknown) Hx of shoulder surgery (Unknown) Status post colonoscopy Status post eye surgery Status post knee surgery Family History Father Cancer Mother No problems noted. Sister Heart disease Social History household members: significant other Smoking Status: Never smoker alcohol intake: current Smoking Status: Never smoker alcohol intake frequency: 0-2 drinks per day Substance Use Type: does not use Exam <DARRYL Lassiter - Last Filed: 12/06/21 15:03> Narrative Exam Narrative: Independently reviewed vitals signs and nursing notes. General: Awake, alert, nontoxic, no cardiorespiratory distress Head/Neck: Atraumatic, neck supple without anterior cervical lymphadenopathy, no sinus tenderness Eyes: EOMI, conjunctiva normal Nose: nares patent, no rhinorrhea Mouth/Throat: moist mucus membranes, posterior pharynx without erythema or lesion Cardio: Regular rate and rhythm, no peripheral edema, normotensive, warm extremities with palpable radial pulses Respiratory: respirations unlabored without wheezing, stridor, or rales. No retractions, hypoxia or tachypnea occasional cough GI: Abdomen soft, nontender to palpation x4 quadrants, no guarding or rebound tenderness MSK: Moves all extremities, neurovascularly intact, range of motion without deficit Skin: Normal capillary refill, no rash Neuro: Normal speech and cognition, normal gait Initial Vital Signs Initial Vital Signs: Vital Signs Temperature 98.9 F 12/06/21 13:12 Pulse Rate 61 12/06/21 13:12 Respiratory Rate 22 12/06/21 13:12 Blood Pressure 143/80 H 12/06/21 13:12 Pulse Oximetry 98 12/06/21 13:12 Oxygen Delivery Method 12/06/21 13:12 <Coco Giron DO - Last Filed: 12/07/21 07:34> Initial Vital Signs Initial Vital Signs: Vital Signs Temperature 98.9 F 12/06/21 13:12 Pulse Rate 61 12/06/21 13:12 Respiratory Rate 22 12/06/21 13:12 Blood Pressure 143/80 H 12/06/21 13:12 Pulse Oximetry 98 12/06/21 13:12 Oxygen Delivery Method 12/06/21 13:12 Course <DARRYL Lassiter - Last Filed: 12/06/21 15:03> Orders Ordered: ED Orders 12/06/21 13:14 COVID19 -Nasal RAPID/Pre-Proc Stat 12/06/21 13:16 XR chest 2V Stat Vital Signs Vital signs: Vital Signs - 8 hr 12/06/21 13:12 Temperature 98.9 F Pulse Rate 61 Respiratory Rate 22 Blood Pressure 143/80 H Pulse Oximetry 98 Oxygen Delivery Method Room Air <Coco Giron DO - Last Filed: 12/07/21 07:34> Orders Ordered: ED Orders 12/06/21 13:14 COVID19 -Nasal RAPID/Pre-Proc Stat 12/06/21 13:16 XR chest 2V Stat Vital Signs Vital signs: Vital Signs - 8 hr 12/06/21 13:12 Temperature 98.9 F Pulse Rate 61 Respiratory Rate 22 Blood Pressure 143/80 H Pulse Oximetry 98 Oxygen Delivery Method Room Air MDM - URI/Sore Throat <DARRYL Lassiter - Last Filed: 12/06/21 15:03> Lab Data Labs: Lab Results 12/06/21 Range/Units 13:14 SARS-CoV-2 (PCR) Negative (Negative) Imaging Data Chest x-ray: Radiologist's Impression: PROCEDURE:? XR CHEST 2V ? INDICATIONS:? cough ? TECHNIQUE:? 2 views of the chest were acquired.? ? COMPARISON:? [facility], , CHEST 2 VIEW, 06/07/2016, 15:08. ? FINDINGS:? ? Surgical changes and devices:? None.? ? Lungs and pleura:? Lungs are clear.? No pleural effusions or pneumothorax.? ? Mediastinum:? Mediastinal contours are normal.? Heart size is normal.? ? Bones and chest wall:? No suspicious bony abnormalities.? There is S shaped scoliosis of the thoracic spine.? Soft tissues appear unremarkable.? ? IMPRESSION:? No acute cardiopulmonary abnormality. ? ? Dictated by: Baltazar Mckeon M.D. on 12/06/2021 at 12:55 ? ? Approved by: Baltazar Mckeon M.D. on 12/06/2021 at 12:55 ? [facility] Narrative Medical decision making narrative: This is a 71 presents to the emergency department complaining of cough, congestion, and increased phlegm over the last two weeks. He states it started with a viral illness. His COVID PCR is negative, his two view chest x-ray shows no acute cardiopulmonary abnormality. On exam, patient does not have any tachypnea, hypoxia, abnormal breath sounds, or any signs of cardio respiratory distress. This is most likely bronchitis from a viral cause, could also be seasonal allergies. He was prescribed five days of prednisone, cetirizine at night, fluticasone b.i.d., and cepacol throat lozenges. Encouraged to return to the emergency department for any new or worsening symptoms, stay hydrated. Patient is appropriate and amenable to discharge home. Vital signs are stable on repeat examination is unremarkable. Patient has been informed of results. Patient has been given strict return to ER precautions for any new or worsening symptoms. Patient understands to follow up closely with outpatient providers as instructed. Patient understands plan and agrees to discharge home. All questions and concerns answered at this time. <Coco Giron, DO - Last Filed: 12/07/21 07:34> Lab Data Labs: Lab Results 12/06/21 Range/Units 13:14 SARS-CoV-2 (PCR) Negative (Negative) Discharge Plan Departure Patient Disposition: Home Clinical Impression: Acute bronchitis Qualifiers: Bronchitis organism: unspecified organism Qualified Code(s): J20.9 - Acute bronchitis, unspecified Instructions: Acute Bronchitis Activity Restrictions/Additional Instructions: *You have been diagnosed with bronchitis. I am sorry for your symptoms, please take the steroids for the next five days, use Flonase morning and night, cetirizine at night for nasal congestion. Then you can try throat lozenges as needed for your cough and sore throat. Try stay hydrated, take Tylenol or ibuprofen if you feel hot/cold. Your x-ray does not show any pneumonia today, an antibiotic will not be helpful. Hopefully this will help feel better over the next few days. Return for any new or worsening symptoms. Your COVID test was negative. Your insurance did not want to cover these prescriptions but hopefully since they are generic it will be low-cost. *What to do: *Please continue to take your regular medications as directed. [x ] New medication prescriptions sent to your pharmacy: [[facility] ] [ ] New medication written as a paper prescription [ ] No new medications given *Please follow up with your primary care provider in 2-3 days, call for an appointment. Let them know you were seen in the Emergency Department and that we asked that you be seen for follow-up. We will electronically transmit a record of today's note if your PCP is in our system *If you do not have a primary care provider please contact [phone] to est [facility] with one of the [facility] primary care providers. *Return to Emergency Department if you should have any new, worsening or concerning symptoms, such as [fever greater than 101F, chills, worsening pain, persistent vomiting or other bothersome symptoms] Prescriptions: New prednisone 20 mg tablet 40 mg PO DAILY 5 Days Qty: 10 0RF fluticasone propionate 50 mcg/actuation spray,suspension 1 spray intranasal BID PRN (Reason: nasal congestion) 14 Days Qty: 16 0RF Rx Instructions: administer into each nostril Cepacol Sore Throat (chiara-men) 15-3.6 mg lozenge 1 roland mucous membrane Q2-4H PRN (Reason: sore throat) Qty: 16 0RF cetirizine 10 mg tablet 10 mg PO BEDTIME Qty: 30 0RF No Action trazodone 50 mg tablet See Rx Instructions .ROUTE .COMPLEX Qty: 90 3RF Dose Instruction: TAKE 1 TABLET BY MOUTH AT BEDTIME NEEDED FOR INSOMNIA Rx Instructions: TAKE 1 TABLET BY MOUTH AT BEDTIME NEEDED FOR INSOMNIA lisinopril 2.5 mg tablet See Rx Instructions .ROUTE .COMPLEX Qty: 90 1RF Dose Instruction: TAKE 1 TABLET BY MOUTH EVERY DAY Rx Instructions: TAKE 1 TABLET BY MOUTH EVERY DAY citalopram 20 mg tablet See Rx Instructions .ROUTE .COMPLEX Qty: 90 1RF Dose Instruction: TAKE 1 TABLET BY MOUTH EVERY DAY Rx Instructions: TAKE 1 TABLET BY MOUTH EVERY DAY clopidogrel 75 mg tablet See Rx Instructions .ROUTE .COMPLEX Qty: 90 3RF Dose Instruction: TAKE 1 TABLET BY MOUTH EVERY DAY Rx Instructions: TAKE 1 TABLET BY MOUTH EVERY DAY atorvastatin 20 mg tablet 20 mg PO BEDTIME Qty: 90 3RF Referrals: Surjit Coello DO [Primary Care Provider] - Visit Report Forms: Patient Portal/API <Coco Giron DO - Last Filed: 12/07/21 07:34> Cosign ED Attending [place] Attestation: I was immediately available in the department for consultation. Documentation has been reviewed. I agree with assessment and plan.
[2021-12-06 14:59] VITALS: BP 130/83; PULSE 65; RESP 16; O2SAT 96
== END 2021-12-06 15:00 | disposition home or self-care (01) ==
PROVIDERS: Emergency Medicine; Emergency Provider Nurse Practitioner Critical Care Medicine; PCP Family Medicine
DX: J20.9 Acute bronchitis, unspecified (principal); Z20.822 Contact with and (suspected) exposure to COVID-19
CPT/HCPCS: 71046; 87635; 99281; 99283; C9803

== ENCOUNTER → 2022-03-17 09:27 | Outpatient (CLI) | payer MEDICARE, SELFPAY ==
[2022-03-17 10:06] LABS: Add Manual Diff / Slide Review NO; Basophils Absolute Auto 100 /uL (0-100); Basophils Percent Auto 1.1 % (0-2); Eosinophils Absolute Auto 100 /uL (0-450); Hematocrit 40.4 % (41-53); Hemoglobin 13.8 g/dL (13.5-17.5); Lymphocytes Absolute Auto 1000 /uL (1100-4500); Lymphocytes Percent Auto 20.7 % (25-40); Mean Corpuscular HGB Conc 34.2 % (30-36); Mean Corpuscular Hemoglobin 32.1 PG (26-34); Monocytes Absolute Auto 500 /uL (0-900); Monocytes Percent Auto 9.9 % (3-14); Neutrophils Absolute Auto 3200 /uL (1500-7000); Neutrophils Percent Auto 65.3 % (50-75); Platelet Count 326 X10^3/uL (150-400); Red Cell Distribution Width 13.4 % (11.6-14.8); White Blood Cell Count 4.8 X10^3/uL (4.5-11.0)
[2022-03-17 10:39] LABS: Alanine Aminotransferase 26 IU/L (<50); Albumin 4.6 g/dL (3.5-5.0); Albumin Globulin Ratio 1.4 (1.0-2.8); Alkaline Phosphatase 88 U/L (38-126); Aspartate Aminotransferase 46 IU/L (17-59); BUN Creatinine Ratio 13.9 (6-22); Blood Urea Nitrogen 20 mg/dL (9-20); Calcium 9.3 mg/dL (8.4-10.2); Carbon Dioxide 26 mmol/L (22-32); Chloride 101 mmol/L (98-107); Cholesterol 190 mg/dL (140-199); Estimated Glomerular Filt Rate 51 mL/min (>60); Globulin 3.4 g/dL (1.7-4.1); Glucose 87 mg/dL (80-110); HDL Cholesterol 59 mg/dL (40-60); HEMOLYSIS 50 (0-50); LDL Cholesterol Calculated 108 mg/dL (<100); Potassium 4.1 mmol/L (3.4-5.1); Sodium 136 mmol/L (137-145); Triglycerides 114 mg/dL (35-150)
[2022-03-17 11:09] LABS: Prostate Specific Antigen Scrn 1.37 ng/mL (0.1-4.0)
== END ==
PROVIDERS: PCP Family Medicine; Referring Provider Family Medicine; Visit Provider Family Medicine
DX: I10 Essential (primary) hypertension (principal); E78.2 Mixed hyperlipidemia; Z12.5 Encounter for screening for malignant neoplasm of prostate; N18.32 Chronic kidney disease, stage 3b
CPT/HCPCS: 36415; 80053; 80061; 85025; G0103

== ENCOUNTER → 2023-03-20 14:05 | Outpatient (CLI) | payer MEDICARE, SELFPAY ==
[2023-03-20 14:56] LABS: Add Manual Diff / Slide Review NO; Basophils Absolute Auto 100 /uL (0-100); Eosinophils Absolute Auto 400 /uL (0-450); Eosinophils Percent Auto 6.7 % (2-4); Hematocrit 37.9 % (41-53); Hemoglobin 12.8 g/dL (13.5-17.5); Lymphocytes Absolute Auto 1000 /uL (1100-4500); Lymphocytes Percent Auto 18.5 % (25-40); Mean Corpuscular HGB Conc 33.9 % (30-36); Mean Corpuscular Hemoglobin 31.7 PG (26-34); Mean Corpuscular Volume 93.3 fL (80-100); Monocytes Absolute Auto 800 /uL (0-900); Neutrophils Absolute Auto 3200 /uL (1500-7000); Neutrophils Percent Auto 59.8 % (50-75); Platelet Count 297 X10^3/uL (150-400); Red Blood Cell Count 4.06 X10^6/uL (4.5-5.9); Red Cell Distribution Width 13.2 % (11.6-14.8); White Blood Cell Count 5.4 X10^3/uL (4.5-11.0)
[2023-03-20 15:11] LABS: HEMOLYSIS < 15 (0-50)
[2023-03-20 15:19] LABS: Alanine Aminotransferase 29 IU/L (<50); Albumin Globulin Ratio 1.5 (1.0-2.8); Alkaline Phosphatase 107 U/L (38-126); Aspartate Aminotransferase 36 IU/L (17-59); BUN Creatinine Ratio 13.5 (6-22); Bilirubin Total 0.9 mg/dL (0.2-1.3); Blood Urea Nitrogen 21 mg/dL (9-20); Calcium 9.4 mg/dL (8.4-10.2); Carbon Dioxide 26 mmol/L (22-32); Chloride 101 mmol/L (98-107); Cholesterol 170 mg/dL (140-199); Estimated Glomerular Filt Rate 46 mL/min (>60); Globulin 2.7 g/dL (1.7-4.1); Glucose 93 mg/dL (80-110); HDL Cholesterol 58 mg/dL (40-60); LDL Cholesterol Calculated 93 mg/dL (<100); Potassium 4.2 mmol/L (3.4-5.1); Sodium 135 mmol/L (137-145); Total Protein 6.7 g/dL (6.3-8.2); Triglycerides 93 mg/dL (35-150)
[2023-03-21 16:31] LABS: Prostate Specific Antigen Scrn 1.37 ng/mL (0.1-4.0)
== END ==
PROVIDERS: PCP Family Medicine; Referring Provider Family Medicine; Visit Provider Family Medicine
DX: N18.9 Chronic kidney disease, unspecified (principal); Z12.5 Encounter for screening for malignant neoplasm of prostate; E78.5 Hyperlipidemia, unspecified; I10 Essential (primary) hypertension
CPT/HCPCS: 36415; 80053; 80061; 85025; G0103

== ENCOUNTER → 2023-06-16 10:35 | Outpatient (CLI) | payer MEDICARE, SELFPAY ==
[2023-06-16 11:53] LABS: Add Manual Diff / Slide Review NO; Basophils Absolute Auto 100 /uL (0-100); Basophils Percent Auto 1.3 % (0-2); Eosinophils Absolute Auto 100 /uL (0-450); Eosinophils Percent Auto 3.1 % (2-4); Hematocrit 40.3 % (41-53); Hemoglobin 13.7 g/dL (13.5-17.5); Lymphocytes Absolute Auto 900 /uL (1100-4500); Lymphocytes Percent Auto 20.2 % (25-40); Mean Corpuscular HGB Conc 33.9 % (30-36); Mean Corpuscular Hemoglobin 31.9 PG (26-34); Mean Corpuscular Volume 94.1 fL (80-100); Monocytes Absolute Auto 500 /uL (0-900); Monocytes Percent Auto 11.3 % (3-14); Neutrophils Absolute Auto 3000 /uL (1500-7000); Neutrophils Percent Auto 64.1 % (50-75); Platelet Count 295 X10^3/uL (150-400); Red Blood Cell Count 4.28 X10^6/uL (4.5-5.9); White Blood Cell Count 4.6 X10^3/uL (4.5-11.0)
[2023-06-16 12:08] LABS: Alanine Aminotransferase 27 IU/L (<50); Albumin 4.1 g/dL (3.5-5.0); Albumin Globulin Ratio 1.2 (1.0-2.8); Alkaline Phosphatase 93 U/L (38-126); Aspartate Aminotransferase 29 IU/L (17-59); BUN Creatinine Ratio 16.6 (6-22); Bilirubin Total 0.8 mg/dL (0.2-1.3); Blood Urea Nitrogen 28 mg/dL (9-20); Calcium 9.7 mg/dL (8.4-10.2); Carbon Dioxide 29 mmol/L (22-32); Chloride 101 mmol/L (98-107); Estimated Glomerular Filt Rate 42 mL/min (>60); Globulin 3.3 g/dL (1.7-4.1); Glucose 93 mg/dL (80-110); HEMOLYSIS < 15 (0-50); Potassium 4.1 mmol/L (3.4-5.1); Sodium 135 mmol/L (137-145); Total Protein 7.4 g/dL (6.3-8.2)
== END ==
LOC: LAB 10:36
PROVIDERS: PCP Family Medicine; Referring Provider Family Medicine; Visit Provider Family Medicine
DX: I10 Essential (primary) hypertension (principal); D64.9 Anemia, unspecified; N18.9 Chronic kidney disease, unspecified
CPT/HCPCS: 36415; 80053; 85025

== ENCOUNTER → 2023-10-05 10:09 | Outpatient (CLI) | payer MEDICARE, SELFPAY ==
[2023-10-05 11:06] LABS: Add Manual Diff / Slide Review NO; Basophils Absolute Auto 100 /uL (0-100); Basophils Percent Auto 1.3 % (0-2); Eosinophils Absolute Auto 200 /uL (0-450); Eosinophils Percent Auto 3.3 % (2-4); Hematocrit 40.3 % (41-53); Hemoglobin 13.6 g/dL (13.5-17.5); Lymphocytes Absolute Auto 1400 /uL (1100-4500); Lymphocytes Percent Auto 24.3 % (25-40); Mean Corpuscular HGB Conc 33.7 % (30-36); Mean Corpuscular Hemoglobin 31.4 PG (26-34); Monocytes Absolute Auto 600 /uL (0-900); Monocytes Percent Auto 9.6 % (3-14); Neutrophils Absolute Auto 3700 /uL (1500-7000); Neutrophils Percent Auto 61.5 % (50-75); Platelet Count 333 X10^3/uL (150-400); Red Blood Cell Count 4.33 X10^6/uL (4.5-5.9); Red Cell Distribution Width 12.6 % (11.6-14.8); White Blood Cell Count 5.9 X10^3/uL (4.5-11.0)
[2023-10-05 12:34] LABS: Blood Urea Nitrogen 20 mg/dL (9-20); Cholesterol 221 mg/dL (140-199); Estimated Glomerular Filt Rate 47 mL/min (>60); HDL Cholesterol 55 mg/dL (40-60); LDL Cholesterol Calculated 135 mg/dL (<100); Triglycerides 153 mg/dL (35-150)
== END ==
PROVIDERS: PCP Family Medicine; Referring Provider Family Medicine; Visit Provider Family Medicine
DX: D64.9 Anemia, unspecified (principal); N18.9 Chronic kidney disease, unspecified; E78.5 Hyperlipidemia, unspecified
CPT/HCPCS: 36415; 80061; 82565; 84520; 85025

== ENCOUNTER → 2023-10-10 16:02 | Outpatient (CLI) | payer MEDICARE, SELFPAY ==
--- NOTE | 2023-10-10 16:04 | DI.RAD.S_ITS ---
PROCEDURE: XR LUMBAR SPINE MIN 4V INDICATIONS: Left sided low back and hip pain TECHNIQUE: Three views of the lumbar spine. COMPARISON: None. FINDINGS: Bones: 5 nonrib-bearing vertebrae are present. Slight reversed S-shaped curvature of the lumbar spine. No listhesis. Severe disc height loss at L2-3, L3-4. Moderate disc height loss at remaining levels. Diffuse facet arthrosis. Soft tissues: Overlying bowel gas pattern is normal. No suspicious soft tissue calcifications. Flexion/extension: There is normal range of motion, with preserved normal alignment. IMPRESSION: Moderate to severe, multilevel degenerative disc disease and facet arthrosis. Dictated by: Odell Eddy M.D. on 10/10/2023 at 16:57 Approved by: Odell Eddy M.D. on 10/10/2023 at 16:58
--- NOTE | 2023-10-10 16:04 | DI.RAD.S_ITS ---
PROCEDURE: XR HIP W PEL IF DONE TRICIA MIN 4V INDICATIONS: Left sided low back and hip pain TECHNIQUE: AP pelvis with lateral view(s) of the bilateral hip(s). COMPARISON: None. FINDINGS: Bones: No fractures or dislocations. Pelvic ring appears intact. No suspicious bony lesions. Nonuniform joint space narrowing and osteophytic lipping of the acetabuli. Soft tissues: The visualized bowel gas pattern is normal. No suspicious soft tissue calcifications. IMPRESSION: Mild bilateral hip osteoarthritis. Dictated by: Odell Eddy M.D. on 10/10/2023 at 16:57 Approved by: Odell Eddy M.D. on 10/10/2023 at 16:57
[2023-10-10 16:29] LABS: Iron 125 ug/dL (49-181)
== END ==
PROVIDERS: PCP Family Medicine; Referring Provider Physician Assistant; Visit Provider Physician Assistant
DX: M16.0 Bilateral primary osteoarthritis of hip (principal); M47.816 Spondylosis without myelopathy or radiculopathy, lumbar region; M51.36 Other intervertebral disc degeneration, lumbar region; D64.9 Anemia, unspecified; M25.552 Pain in left hip; M54.50 Low back pain, unspecified; N18.9 Chronic kidney disease, unspecified
CPT/HCPCS: 72110; 73522; 83540

== ENCOUNTER → 2023-12-01 15:04 | Outpatient (CLI) | payer MEDICARE, SELFPAY ==
--- NOTE | 2023-12-01 | DI.MRI.S_ITS ---
PROCEDURE: MR LUMBAR SPINE WO CON INDICATIONS: LUMBAR STENOSIS W/NEUROGENIC CLAUDICATION TECHNIQUE: Noncontrast sagittal T1 spin echo and T2 fast echo, sagittal STIR, and T2 fast spin echo through the lumbar spine. In cases with scoliosis, additional coronal T2 fast spin echo may be performed. COMPARISON: [facility], CR, XR LUMBAR SPINE MIN 4V, 10/10/2023, 16:04. FINDINGS: Image quality: Excellent. Alignment and Curvature: There is mild levoconvex curvature of the lumbar spine. Bone Marrow: Marrow is of normal overall signal. No acute vertebral body compression fractures. Spinal Cord: Conus medullaris terminates at the L1 level. Visualized cord demonstrates normal signal and size. Paraspinous Soft Tissues: No paravertebral masses. Grade 2-3 fatty infiltration of the paraspinous musculature. T12-L1: Mild disc desiccation without significant spinal canal stenosis or neural foraminal narrowing. L1-L2: Disc desiccation and loss of disc space height with mild circumferential disc bulging, mild bilateral facet hypertrophy, buckling of the ligamentum flavum. Findings result in mild narrowing of the spinal canal with crowding of the right lateral recess as well as mild bilateral neural foraminal narrowing. L2-L3: Disc desiccation and loss of disc space height with moderate circumferential disc bulging as well as mild bilateral facet hypertrophy and buckling of the ligamentum flavum. Findings result in mild narrowing of the spinal canal with crowding of the right lateral recess and mild to moderate bilateral neural foraminal narrowing. L3-L4: Disc desiccation and loss of disc space height with moderate circumferential disc bulging as well as moderate bilateral facet hypertrophy and buckling of the ligamentum flavum. Findings result in mild narrowing of the spinal canal with crowding of the right lateral recess as well as moderate bilateral neural foraminal narrowing. L4-L5: Disc desiccation loss of disc space height with circumferential disc bulging as well as moderate to severe bilateral facet hypertrophy, buckling of the ligamentum flavum, and mildly prominent epidural fat. Additionally, there appears to be extrusion of disc material extending superiorly in the left foraminal zone that contributes to neural foraminal narrowing. Findings result in moderate to severe narrowing of the spinal canal with effacement of the lateral recesses as well as severe left and moderate right neural foraminal narrowing. L5-S1: Disc desiccation and loss of disc space height with circumferential disc bulging as well as a left paracentral disc protrusion and moderate bilateral facet hypertrophy. Findings result in mild narrowing of the spinal canal, effacement of the left lateral recess, as well as moderate left and [id number] right neural foraminal narrowing. IMPRESSION: 1. At L4-5, degenerative changes and a left foraminal disc extrusion result in severe narrowing of the spinal canal, effacement of the lateral recesses, moderate to severe left neural foraminal narrowing, and moderate right neural foraminal narrowing. 2. Additional moderate multilevel degenerative disc disease and facet hypertrophy as described in detail in the body of the report, without additional levels of high-grade spinal canal stenosis or high-grade neural foraminal narrowing. 3. Levoconvex curvature of the lumbar spine. Approved by: Anthony Childers M.D. on 12/02/2023 at 10:03
== END ==
PROVIDERS: PCP Family Medicine; Referring Provider Orthopaedic Surgery Orthopaedic Surgery of the Spine; Visit Provider Orthopaedic Surgery Orthopaedic Surgery of the Spine
DX: M48.062 Spinal stenosis, lumbar region with neurogenic claudication (principal); M48.07 Spinal stenosis, lumbosacral region; M51.26 Other intervertebral disc displacement, lumbar region; M47.816 Spondylosis without myelopathy or radiculopathy, lumbar region; M47.817 Spondylosis without myelopathy or radiculopathy, lumbosacral region
CPT/HCPCS: 72148

== ENCOUNTER 2024-02-02 12:43 | Emergency (ER) | payer MEDICARE, SELFPAY ==
[2024-02-02 12:58] VITALS: BP 116/61; PULSE 70; RESP 16; TEMP 36.6; O2SAT 95; BMI 26.6
--- NOTE | 2024-02-02 13:19 | ED_ITS ---
HPI - Abdominal Pain <Geovanna Head MD - Last Filed: 02/04/24 18:19> General Chief Complaint: Abdominal Pain Stated Complaint: abd cramps, diarrhea, dizziness Time Seen by Provider: 02/02/24 13:12 History of Present Illness HPI narrative: 73-year-old male presents for 3 days of generalized abdominal cramping, multiple episodes of nonbloody diarrhea. Taking Pepto-Bismol at home without significant relief of symptoms. Related Data Previous Rx's Medication Instructions Recorded ezetimibe 10 mg tablet 10 mg PO DAILY #90 tabs 06/20/23 ferrous sulfate 325 mg (65 mg 325 mg PO DAILY #90 tabs 06/22/23 iron) tablet citalopram 20 mg tablet 20 mg PO BEDTIME #90 tabs 09/27/23 lisinopril 2.5 mg tablet 2.5 mg PO DAILY #90 tabs 09/27/23 clopidogrel 75 mg tablet 75 mg PO DAILY #90 tabs 11/01/23 trazodone 100 mg tablet 100 mg PO BEDTIME for insomnia #90 01/30/24 tabs amoxicillin 875 mg-potassium 1 tab PO BID #14 tabs 02/02/24 clavulanate 125 mg tablet ondansetron 4 mg disintegrating 4 mg PO Q8H PRN nausea and 02/02/24 tablet vomiting #20 tabs oxycodone-acetaminophen 5 mg-325 1 tab PO Q4-6H PRN pain #20 tabs 02/02/24 mg tablet (Percocet) Allergies Allergy/AdvReac Type Severity Reaction Status Date / Time atomoxetine [From STRATTERA] Allergy Unknown Verified 12/27/23 09:23 Review of Systems <Crow Kern MD - Last Filed: 02/10/24 12:46> Review of Systems Narrative: GENERAL: negative chills, fatigue, malaise, fever, sweats. HEENT: negative sinus pain, ear pain, sore throat RESPIRATORY: negative dyspnea, cough CARDIOVASCULAR: negative chest pain, palpitations GASTROINTESTINAL: negative nausea, vomiting, positive abdominal pain : negative dysuria, frequency, hematuria MUSCULOSKELETAL: negative muscle or bony pain SKIN: negative rash, skin lesions NEUROLOGIC: negative weakness, numbness ROS Unobtainable: All systems reviewed & are unremarkable except as noted in HPI and below Patient History <Geovanna Head MD - Last Filed: 02/04/24 18:19> Medical History Lumbar radiculopathy Normocytic anemia Bronchitis Screening for prostate cancer Chronic diarrhea Sacral region somatic dysfunction Pelvic somatic dysfunction Lumbar region somatic dysfunction Segmental and somatic dysfunction of abdomen and other regions Numbness of left foot Left buttock pain Varicose vein of leg Nausea & vomiting Gastritis Neuropathy (Unknown) CKD (chronic kidney disease) (Unknown) Arthritis (Unknown) Detached retina (Unknown) Scoliosis (Unknown) Stroke (Unknown) Hyperlipemia (Unknown) Hypertension (Unknown) ADHD (attention deficit hyperactivity disorder) (Unknown) Asthma (Unknown) Depression (Unknown) Hyperparathyroidism (09/27/16) Hypercalcemia (09/27/16) Surgical History H/O parathyroidectomy Hx of shoulder surgery (Unknown) Hx of right knee surgery (Unknown) Status post knee surgery History of cataract removal with insertion of prosthetic lens Status post colonoscopy Status post eye surgery History of vasectomy Family History Father Cancer Mother No problems noted. Sister Heart disease Social History household members: significant other Smoking Status: Never smoker alcohol intake: current Smoking Status: Never smoker alcohol intake frequency: 0-2 drinks per day Substance Use Type: does not use Exam <Geovanna Head MD - Last Filed: 02/04/24 18:19> Initial Vital Signs Initial Vital Signs: Vital Signs Temperature 97.8 F 02/02/24 12:58 Pulse Rate 70 02/02/24 12:58 Respiratory Rate 16 02/02/24 12:58 Blood Pressure 116/61 02/02/24 12:58 Pulse Oximetry 95 02/02/24 12:58 Oxygen Delivery Method Room Air 02/02/24 12:58 Const: Awake, alert, no acute distress, nontoxic appearing Cardiac: regular rate, regular rhythm RESP: unlabored, clear bilaterally, no wheezing GI: Soft, Generalized tenderness to deep palpation without rebound or guarding Skin: Warm, Dry, intact, no rashes Neuro: AO x3, CN II-XII grossly intact, moves all extremities <Crow Kern MD - Last Filed: 02/10/24 12:46> Initial Vital Signs Initial Vital Signs: Vital Signs Temperature 97.8 F 02/02/24 12:58 Pulse Rate 70 02/02/24 12:58 Respiratory Rate 16 02/02/24 12:58 Blood Pressure 116/61 02/02/24 12:58 Pulse Oximetry 95 02/02/24 12:58 Oxygen Delivery Method Room Air 02/02/24 12:58 Course <Geovanna Head MD - Last Filed: 02/04/24 18:19> Orders Ordered: Discontinued Medications Amoxicillin/Clavulanate Potassium (Amoxicillin/Clav 875/125 Mg) 1 tab PO NOW ONE Stop: 02/02/24 16:30 Last Admin: 02/02/24 16:37 Dose: 1 tab Documented By: MEDARDO Sodium Chloride (Normal Saline 0.9%) 500 mls @ 1,000 mls/hr IV BOLUS ONE Stop: 02/02/24 16:08 Last Infusion: 02/02/24 16:39 Dose: Infused Documented By: Admin: 02/02/24 16:07 Dose: 1,000 mls/hr Documented By: MEDARDO Vital Signs Vital signs: Vital Signs - 8 hr 02/02/24 12:58 Temperature 97.8 F Pulse Rate 70 Respiratory Rate 16 Blood Pressure 116/61 Pulse Oximetry 95 Oxygen Delivery Method Room Air <Crow Kern MD - Last Filed: 02/10/24 12:46> Orders Ordered: Discontinued Medications Amoxicillin/Clavulanate Potassium (Amoxicillin/Clav 875/125 Mg) 1 tab PO NOW ONE Stop: 02/02/24 16:30 Last Admin: 02/02/24 16:37 Dose: 1 tab Documented By: MEDARDO Sodium Chloride (Normal Saline 0.9%) 500 mls @ 1,000 mls/hr IV BOLUS ONE Stop: 02/02/24 16:08 Last Infusion: 02/02/24 16:39 Dose: Infused Documented By: Admin: 02/02/24 16:07 Dose: 1,000 mls/hr Documented By: MEDARDO Vital Signs Vital signs: Vital Signs - 8 hr 02/02/24 12:58 Temperature 97.8 F Pulse Rate 70 Respiratory Rate 16 Blood Pressure 116/61 Pulse Oximetry 95 Oxygen Delivery Method Room Air MDM - Abdominal Pain <Geovanna Head MD - Last Filed: 02/04/24 18:19> Lab Data 02/02/24 13:37 02/02/24 13:37 Labs: Lab Results 02/02/24 Range/Units 13:37 WBC 15.0 H (4.5-11.0) X10^3/uL RBC 4.26 L (4.5-5.9) X10^6/uL Hgb 13.5 (13.5-17.5) g/dL Hct 40.4 L (41-53) % MCV 94.7 (80-100) fL MCH 31.8 (26-34) PG MCHC 33.6 (30-36) % RDW 12.7 (11.6-14.8) % Plt Count 377 (150-400) X10^3/uL Neut % (Auto) 85.4 H (50-75) % Lymph % (Auto) 4.7 L (25-40) % Banks % (Auto) 9.4 (3-14) % Eos % (Auto) 0.1 L (2-4) % Baso % (Auto) 0.4 (0-2) % Neut # (Auto) 73379 H (7707-2290) /uL Lymph # (Auto) 700 L (4376-3946) /uL Banks # (Auto) 1400 H (0-900) /uL Eos # (Auto) 0 (0-450) /uL Baso # (Auto) 100 (0-100) /uL Sodium 131 L (137-145) mmol/L Potassium 4.1 (3.4-5.1) mmol/L Chloride 97 L (98-107) mmol/L Carbon Dioxide 25 (22-32) mmol/L BUN 21 H (9-20) mg/dL Creatinine 1.52 H (0.66-1.25) mg/dL Estimated GFR 47 L (>60) mL/min BUN/Creatinine Ratio 13.8 (6-22) Glucose 105 (80-110) mg/dL Lactate 1.8 (0.7-2.1) mmol/L Calcium 8.6 (8.4-10.2) mg/dL Total Bilirubin 1.6 H (0.2-1.3) mg/dL AST 35 (17-59) IU/L ALT 23 (<50) IU/L Alkaline Phosphatase 83 (38-126) U/L Total Protein 7.6 (6.3-8.2) g/dL Albumin 4.1 (3.5-5.0) g/dL Globulin 3.5 (1.7-4.1) g/dL Albumin/Globulin Ratio 1.2 (1.0-2.8) Lipase 103 (23-300) U/L Stl C. cayetanensis PCR Not detected (Not Detect) Stool Rotavirus (PCR) Not detected (Not Detect) Stool Adenovirus (PCR) Not detected (Not Detect) Stool Astrovirus (PCR) Not detected (Not Detect) Stool Cryptosporidium PCR Not detected (Not Detect) Stl E.coli Shiga Tox PCR Not detected (Not Detect) St Sh/Enteroin Ecoli PCR Not detected (Not Detect) Stl Enterotoxigenic E PCR Not detected (Not Detect) Stool EPEC (PCR) Not detected (Not Detect) Stl E. histolytica PCR Not detected (Not Detect) Stool Giardia Lamblia PCR Not detected (Not Detect) Stool Sapovirus (PCR) Not detected (Not Detect) Stl P. shigelloides PCR Not detected (Not Detect) St Y.enterocolitica PCR Not detected (Not Detect) Stool Vibrio (PCR) Not detected (Not Detect) Stl Vibrio cholerae PCR Not detected (Not Detect) Stl Enteroaggr Ecoli PCR Not detected (Not Detect) Stl Norovirus GI/GII PCR Not detected (Not Detect) Campylobacter (PCR) Not detected (Not Detect) C. difficile Tox (PCR) Not detected (Not Detect) Salmonella (PCR) Not detected (Not Detect) [facility] Narrative Medical decision making narrative: Patient here for lower abdominal pain. Worse with lying flat. No prior history of diverticulitis. No urinary complaints. Abdomen soft, non peritoneal, generalized tenderness to palpation. Based on age and duration of symptoms laboratory work and CT imaging ordered. Laboratory work shows WBC count 15, chronic kidney disease at baseline. CT of the abdomen and pelvis and GI panel pending. Care of patient is signed out to Dr. Kern at 1500. After history and exam CBC CMP GI panel CT abdomen pelvis [facility] Medical records reviewed: No recent visit for this complaint Differential considered: Includes but not limited to appendicitis diverticulitis UTI infectious diarrhea Lab Test results independently reviewed as above. Pertinent findings: WBC 15 BUN 21 creatinine 1.52 GFR 47, GI panel negative Imaging studies independently reviewed: Sigmoid diverticulitis on CT abdomen pelvis Consultations: None indicated Treatments: Augmentin, patient is driving normal saline Re-evaluations: 4:30 p.m.. Updated patient results. Pain is controlled. Patient is driving. Return precautions reviewed with patient. He does have family doctor follow up with for colonoscopy. Referral for General surgery well we provided Discussion: Appropriate for discharge home exam is reassuring. Augmentin will be used are now as patient does have renal insufficiency. Return precautions reviewed. Pain is controlled. Patient desires discharge home Diagnosis: Diverticulitis Dr. Kern: Sign out from Dr. Head, GI panel and CT imaging pending. Likely diverticulitis and can go home. <Crow Kern MD - Last Filed: 02/10/24 12:46> Lab Data Labs: Lab Results 02/02/24 Range/Units 13:37 WBC 15.0 H (4.5-11.0) X10^3/uL RBC 4.26 L (4.5-5.9) X10^6/uL Hgb 13.5 (13.5-17.5) g/dL Hct 40.4 L (41-53) % MCV 94.7 (80-100) fL MCH 31.8 (26-34) PG MCHC 33.6 (30-36) % RDW 12.7 (11.6-14.8) % Plt Count 377 (150-400) X10^3/uL Neut % (Auto) 85.4 H (50-75) % Lymph % (Auto) 4.7 L (25-40) % Banks % (Auto) 9.4 (3-14) % Eos % (Auto) 0.1 L (2-4) % Baso % (Auto) 0.4 (0-2) % Neut # (Auto) 41182 H (6883-3698) /uL Lymph # (Auto) 700 L (3600-2759) /uL Banks # (Auto) 1400 H (0-900) /uL Eos # (Auto) 0 (0-450) /uL Baso # (Auto) 100 (0-100) /uL Sodium 131 L (137-145) mmol/L Potassium 4.1 (3.4-5.1) mmol/L Chloride 97 L (98-107) mmol/L Carbon Dioxide 25 (22-32) mmol/L BUN 21 H (9-20) mg/dL Creatinine 1.52 H (0.66-1.25) mg/dL Estimated GFR 47 L (>60) mL/min BUN/Creatinine Ratio 13.8 (6-22) Glucose 105 (80-110) mg/dL Lactate 1.8 (0.7-2.1) mmol/L Calcium 8.6 (8.4-10.2) mg/dL Total Bilirubin 1.6 H (0.2-1.3) mg/dL AST 35 (17-59) IU/L ALT 23 (<50) IU/L Alkaline Phosphatase 83 (38-126) U/L Total Protein 7.6 (6.3-8.2) g/dL Albumin 4.1 (3.5-5.0) g/dL Globulin 3.5 (1.7-4.1) g/dL Albumin/Globulin Ratio 1.2 (1.0-2.8) Lipase 103 (23-300) U/L Stl C. cayetanensis PCR Not detected (Not Detect) Stool Rotavirus (PCR) Not detected (Not Detect) Stool Adenovirus (PCR) Not detected (Not Detect) Stool Astrovirus (PCR) Not detected (Not Detect) Stool Cryptosporidium PCR Not detected (Not Detect) Stl E.coli Shiga Tox PCR Not detected (Not Detect) St Sh/Enteroin Ecoli PCR Not detected (Not Detect) Stl Enterotoxigenic E PCR Not detected (Not Detect) Stool EPEC (PCR) Not detected (Not Detect) Stl E. histolytica PCR Not detected (Not Detect) Stool Giardia Lamblia PCR Not detected (Not Detect) Stool Sapovirus (PCR) Not detected (Not Detect) Stl P. shigelloides PCR Not detected (Not Detect) St Y.enterocolitica PCR Not detected (Not Detect) Stool Vibrio (PCR) Not detected (Not Detect) Stl Vibrio cholerae PCR Not detected (Not Detect) Stl Enteroaggr Ecoli PCR Not detected (Not Detect) Stl Norovirus GI/GII PCR Not detected (Not Detect) Campylobacter (PCR) Not detected (Not Detect) C. difficile Tox (PCR) Not detected (Not Detect) Salmonella (PCR) Not detected (Not Detect) Imaging Data CT scan - abdomen/pelvis: Radiologist's Impression: [address] [address] [address] Scan Report Signed Patient: Omar Carvalho MR#: [id number] : 1950 Acct:[id number] Age/Sex: 73 / M Date of Service: 02/02/24 Loc: ED Accession Number: [id number] Procedure: CT abdomen pelvis w con Ordering Provider: Geovanna Head MD PROCEDURE: CT ABDOMEN PELVIS W CON INDICATIONS: gen abd pain, diarrhea x 3 days TECHNIQUE: After the administration of intravenous contrast, axial sections acquired from the lung bases to the pubic symphysis. Coronal and sagittal reformats were performed. For radiation dose reduction, the following was used: automated exposure control, adjustment of mA and/or kV according to patient size. COMPARISON: None. FINDINGS: Image quality: Diagnostic. Lower Chest: No significant findings. ABDOMEN: Liver: No solid mass. Gallbladder: No radiopaque gallstones or wall thickening. Biliary ducts: No biliary dilation. Pancreas: No ductal dilation. Spleen: Size is within normal limits. Adrenal Glands: No adrenal nodules. Kidneys and Ureters: No hydronephrosis. No solid mass. No complex renal cystic lesion which requires follow up. Stomach and Bowel: Moderately advanced sigmoid diverticulosis with superimposed acute diverticulitis. This is well seen on coronal image 37 of series 3 and axial image 77 of series 2. There is inflammatory change in the adjacent fat. No free air or abscess cavity or free fluid. Peritoneum: No abnormal intraperitoneal fluid. No free air. Ventral Wall: No significant ventral hernia. Abdominal Nodes: No retroperitoneal or mesenteric adenopathy by size criteria. Vessels: Aorta and inferior vena cava are normal in size. PELVIS: Pelvic Organs: Prostate is enlarged. Bladder: No bladder wall thickening. Pelvic Nodes: No enlarged lymph nodes. Miscellaneous: No inguinal hernias are seen. Bones: Diffuse lumbar degenerative change. IMPRESSION: 1. Acute uncomplicated sigmoid diverticulitis. 2. Prostatomegaly. Dictated by: Allan Kramer M.D. on 02/02/2024 at 15:46 Approved by: Allan Kramer M.D. on 02/02/2024 at 15:49 [facility] Narrative Medical decision making narrative: Patient here for lower abdominal pain. Worse with lying flat. No prior history of diverticulitis. No urinary complaints. After history and exam CBC CMP GI panel CT abdomen pelvis [facility] Medical records reviewed: No recent visit for this complaint Differential considered: Includes but not limited to appendicitis diverticulitis UTI infectious diarrhea Lab Test results independently reviewed as above. Pertinent findings: WBC 15 BUN 21 creatinine 1.52 GFR 47, GI panel negative Imaging studies independently reviewed: Sigmoid diverticulitis on CT abdomen pelvis Consultations: None indicated Treatments: Augmentin, patient is driving normal saline Re-evaluations: 4:30 p.m.. Updated patient results. Pain is controlled. Patient is driving. Return precautions reviewed with patient. He does have family doctor follow up with for colonoscopy. Referral for General surgery well we provided Discussion: Appropriate for discharge home exam is reassuring. Augmentin will be used are now as patient does have renal insufficiency. Return precautions reviewed. Pain is controlled. Patient desires discharge home Diagnosis: Diverticulitis Dr. Kern: Sign out from Dr. Head, GI panel and CT imaging pending. Likely diverticulitis and can go home. Discharge Plan Departure Patient Disposition: Home Clinical Impression: Diverticulitis Instructions: DI for Diverticulitis Activity Restrictions/Additional Instructions: Your tests revealed that you do have diverticulitis. It is treated with antibiotics and pain medication. No driving operating machinery when taking prescribed pain medication. See your family doctor next week for re-evaluation. Call provided general surgery office to schedule for colonoscopy. Return if worse if any questions or concerns. Prescriptions: New oxycodone-acetaminophen [Percocet] 5-325 mg tablet 1 tab PO Q4-6H PRN (Reason: pain) Qty: 20 0RF ondansetron 4 mg tablet,disintegrating 4 mg PO Q8H PRN (Reason: nausea and vomiting) Qty: 20 0RF amoxicillin-pot clavulanate 875-125 mg tablet 1 tab PO BID Qty: 14 0RF No Action ferrous sulfate 325 mg (65 mg iron) tablet 325 mg PO DAILY Qty: 90 3RF lisinopril 2.5 mg tablet 2.5 mg PO DAILY Qty: 90 0RF citalopram 20 mg tablet 20 mg PO BEDTIME Qty: 90 0RF trazodone 100 mg tablet 100 mg PO BEDTIME Qty: 90 0RF clopidogrel 75 mg tablet 75 mg PO DAILY Qty: 90 3RF ezetimibe 10 mg tablet 10 mg PO DAILY Qty: 90 3RF Referrals: Yola Hernandez MD [Physician] - Mj Coello DO [Primary Care Provider] - Stand Alone Forms: Patient Portal/API
[2024-02-02 13:48] LABS: Add Manual Diff / Slide Review NO; Basophils Absolute Auto 100 /uL (0-100); Basophils Percent Auto 0.4 % (0-2); Eosinophils Absolute Auto 0 /uL (0-450); Eosinophils Percent Auto 0.1 % (2-4); Hematocrit 40.4 % (41-53); Hemoglobin 13.5 g/dL (13.5-17.5); Lymphocytes Absolute Auto 700 /uL (1100-4500); Lymphocytes Percent Auto 4.7 % (25-40); Mean Corpuscular HGB Conc 33.6 % (30-36); Mean Corpuscular Hemoglobin 31.8 PG (26-34); Mean Corpuscular Volume 94.7 fL (80-100); Monocytes Absolute Auto 1400 /uL (0-900); Monocytes Percent Auto 9.4 % (3-14); Neutrophils Absolute Auto 12800 /uL (1500-7000); Neutrophils Percent Auto 85.4 % (50-75); Platelet Count 377 X10^3/uL (150-400); Red Blood Cell Count 4.26 X10^6/uL (4.5-5.9); Red Cell Distribution Width 12.7 % (11.6-14.8)
[2024-02-02 14:20] LABS: Lactate (Lactic Acid) 1.8 mmol/L (0.7-2.1)
[2024-02-02 14:30] LABS: Alanine Aminotransferase 23 IU/L (<50); Albumin 4.1 g/dL (3.5-5.0); Albumin Globulin Ratio 1.2 (1.0-2.8); Alkaline Phosphatase 83 U/L (38-126); Aspartate Aminotransferase 35 IU/L (17-59); BUN Creatinine Ratio 13.8 (6-22); Bilirubin Total 1.6 mg/dL (0.2-1.3); Blood Urea Nitrogen 21 mg/dL (9-20); Calcium 8.6 mg/dL (8.4-10.2); Carbon Dioxide 25 mmol/L (22-32); Chloride 97 mmol/L (98-107); Estimated Glomerular Filt Rate 47 mL/min (>60); Globulin 3.5 g/dL (1.7-4.1); Glucose 105 mg/dL (80-110); HEMOLYSIS 120 (0-50); Lipase 103 U/L (23-300); Potassium 4.1 mmol/L (3.4-5.1); Sodium 131 mmol/L (137-145); Total Protein 7.6 g/dL (6.3-8.2)
[2024-02-02 15:05] LABS: Adenovirus F 40/41 Not Detected (Not Detect); Astrovirus Not Detected (Not Detect); Campylobacter Not Detected (Not Detect); Clostridium difficile toxin AB Not Detected (Not Detect); Cryptosporidium Not Detected (Not Detect); Cyclospora cayetanensis Not Detected (Not Detect); Entamoeba histolytica Not Detected (Not Detect); Enteroaggregative E.coli Not Detected (Not Detect); Enteropathogenic E.coli Not Detected (Not Detect); Enterotoxigenic E.coli It/st Not Detected (Not Detect); Giardia lamblia Not Detected (Not Detect); Norovirus GI/GII Not Detected (Not Detect); Plesiomonsa shigelloides Not Detected (Not Detect); Rotavirus A Not Detected (Not Detect); Salmonella Not Detected (Not Detect); Sapovirus Not Detected (Not Detect); Shiga-like toxin-prod E.coli Not Detected (Not Detect); Shigella/Enteroinvasive E.coli Not Detected (Not Detect); Vibrio Not Detected (Not Detect); Vibrio cholerae Not Detected (Not Detect); Yersinia enterocolitica Not Detected (Not Detect)
[2024-02-02] MEDS: SODIUM CHLORIDE 0.9% 500 ML 1000 ML IV (16:07)
[2024-02-02] MEDS: AMOXICILLIN/CLAV 875/125 MG 1 TAB PO (16:37)
[2024-02-02 16:40] VITALS: BP 134/64; PULSE 65; RESP 16; O2SAT 95
== END 2024-02-02 16:52 | disposition home or self-care (01) ==
PROVIDERS: Emergency Medicine; Emergency Provider Emergency Medicine; PCP Family Medicine
DX: K57.92 Diverticulitis of intestine, part unspecified, without perforation or abscess without bleeding (principal)
CPT/HCPCS: 36415; 74177; 80053; 83605; 83690; 85025; 87507; 96360; 99284; Q9967

== ENCOUNTER → 2024-04-12 09:03 | Outpatient (CLI) | payer MEDICARE, SELFPAY ==
[2024-04-12 10:41] LABS: Add Manual Diff / Slide Review NO; Basophils Absolute Auto 100 /uL (0-100); Basophils Percent Auto 1.3 % (0-2); Eosinophils Absolute Auto 100 /uL (0-450); Eosinophils Percent Auto 2.8 % (2-4); Hematocrit 41.7 % (41-53); Hemoglobin 14.1 g/dL (13.5-17.5); Lymphocytes Absolute Auto 1200 /uL (1100-4500); Lymphocytes Percent Auto 23.7 % (25-40); Mean Corpuscular HGB Conc 33.8 % (30-36); Mean Corpuscular Volume 94.5 fL (80-100); Monocytes Absolute Auto 500 /uL (0-900); Monocytes Percent Auto 10.1 % (3-14); Neutrophils Absolute Auto 3300 /uL (1500-7000); Neutrophils Percent Auto 62.1 % (50-75); Platelet Count 313 X10^3/uL (150-400); Red Blood Cell Count 4.41 X10^6/uL (4.5-5.9); White Blood Cell Count 5.2 X10^3/uL (4.5-11.0)
[2024-04-12 11:40] LABS: Alanine Aminotransferase 27 IU/L (<50); Albumin 4.2 g/dL (3.5-5.0); Albumin Globulin Ratio 1.6 (1.0-2.8); Alkaline Phosphatase 116 U/L (38-126); Aspartate Aminotransferase 32 IU/L (17-59); BUN Creatinine Ratio 12.7 (6-22); Bilirubin Total 0.8 mg/dL (0.2-1.3); Blood Urea Nitrogen 19 mg/dL (9-20); Calcium 9.9 mg/dL (8.4-10.2); Carbon Dioxide 28 mmol/L (22-32); Chloride 102 mmol/L (98-107); Cholesterol 206 mg/dL (140-199); Estimated Glomerular Filt Rate 48 mL/min (>60); Globulin 2.7 g/dL (1.7-4.1); Glucose 88 mg/dL (80-110); HDL Cholesterol 59 mg/dL (40-60); HEMOLYSIS < 15 (0-50); LDL Cholesterol Calculated 126 mg/dL (<100); Potassium 5.1 mmol/L (3.4-5.1); Sodium 136 mmol/L (137-145); Total Protein 6.9 g/dL (6.3-8.2); Triglycerides 104 mg/dL (35-150)
[2024-04-21 11:40] LABS: Percent Free Testosterone 2.77 % (1.50-4.20); Testosterone Free 22.56 ng/dL (5.00-21.00); Testosterone Total 814.3 ng/dL (264.0-916.0)
== END ==
PROVIDERS: PCP Family Medicine; Referring Provider Family Medicine; Visit Provider Family Medicine
DX: N52.9 Male erectile dysfunction, unspecified (principal); Z12.5 Encounter for screening for malignant neoplasm of prostate; R53.83 Other fatigue; D64.9 Anemia, unspecified; I10 Essential (primary) hypertension; E78.2 Mixed hyperlipidemia
CPT/HCPCS: 36415; 80053; 80061; 84402; 84403; 85025; G0103

== ENCOUNTER 2024-05-16 06:37 | Day surgery (SDC) | payer MEDICARE, SELFPAY ==
--- NOTE | 2024-05-16 | PATH_ITS ---
[facility] Accession Number: [id number] No. of containers..01 Tissue . 01 Material submitted: . colon - CECAL POLYP . 01 Diagnosis: CECAL POLYP, BIOPSY: Tubular adenoma. MRV 05/20/2024 1552 Local . 01 Electronically signed: . Rosaline Verdin MD, Pathologist NPI- [id number] . 01 Gross description: . Received in formalin with two patient identifiers and cecal polyp, is a single mclain soft tissue fragment, 0.6 cm in greatest dimension, submitted in A1. ([id number]) /MRV 05/17/2024 1318 Local . 01 Pathologist provided ICD-10: D12.0 . 01 CPT . 348010 Specimen Comment: A courtesy copy of this report has been sent to [phone] Performed at: [address] [facility] [id number] MD Severiano Edge MD Phone: [phone]
[2024-05-16 07:18] VITALS: BP 133/83; PULSE 67; RESP 18; TEMP 36.2; O2SAT 94
--- NOTE | 2024-05-16 07:43 | PM.HP.1 ---
History of Present Illness History of Present Illness Date Patient Seen: 05/16/24 Time Patient Seen: 07:43 Chief complaint: Colonoscopy Narrative: Raj is a 73-year-old man who is here for a colonoscopy. He had his last colonoscopy with Dr. Marcelo in 2019 and he believes there were polyps were not removed. [facility] Medical History (Updated 04/11/24 @ 11:56 by Mj Coello DO) Fatigue Erectile dysfunction Hx of colonic polyps Lumbar radiculopathy Normocytic anemia Bronchitis Screening for prostate cancer Chronic diarrhea Sacral region somatic dysfunction Pelvic somatic dysfunction Lumbar region somatic dysfunction Segmental and somatic dysfunction of abdomen and other regions Numbness of left foot Left buttock pain Varicose vein of leg Nausea & vomiting Gastritis Neuropathy (Unknown) CKD (chronic kidney disease) (Unknown) Arthritis (Unknown) Detached retina (Unknown) Scoliosis (Unknown) Stroke (Unknown) Hyperlipemia (Unknown) Hypertension (Unknown) ADHD (attention deficit hyperactivity disorder) (Unknown) Asthma (Unknown) Depression (Unknown) Hyperparathyroidism (09/27/16) Hypercalcemia (09/27/16) Surgical History H/O parathyroidectomy Hx of shoulder surgery (Unknown) Hx of right knee surgery (Unknown) Status post knee surgery History of cataract removal with insertion of prosthetic lens Status post colonoscopy Status post eye surgery History of vasectomy Family History Father Cancer Mother No problems noted. Sister Heart disease Social History household members: significant other Smoking Status: Never smoker alcohol intake: never Meds Home Medications and Allergies Home Medications Medication Instructions Recorded Confirmed Type ferrous sulfate 325 mg (65 mg 325 mg PO DAILY #90 tabs 06/22/23 04/18/24 Rx iron) tablet lisinopril 2.5 mg tablet 2.5 mg PO DAILY #90 tabs 09/27/23 05/16/24 Rx ondansetron 4 mg disintegrating 4 mg PO Q8H PRN nausea and 02/02/24 04/18/24 Rx tablet vomiting #20 tabs oxycodone-acetaminophen 5 mg-325 1 tab PO Q4-6H PRN pain #20 tabs 02/02/24 04/18/24 Rx mg tablet (Percocet) clopidogrel 75 mg tablet 75 mg PO DAILY #90 tabs 02/14/24 05/16/24 Rx trazodone 100 mg tablet 100 mg PO ONCE PM for insomnia #90 03/07/24 04/18/24 Rx tabs citalopram 20 mg tablet 20 mg PO ONCE PM #90 tabs 03/13/24 04/18/24 Rx ezetimibe 10 mg tablet 10 mg PO DAILY #90 tabs 03/25/24 05/16/24 Rx sodium,potassium,mag sulfates 17.5 See Rx Instructions PO .COMPLEX 03/25/24 04/18/24 Rx gram-3.13 gram-1.6 gram oral soln #354 mL (Suprep Bowel Prep Kit) citalopram 20 mg tablet 20 mg PO QPM 05/16/24 05/16/24 History Allergies Allergy/AdvReac Type Severity Reaction Status Date / Time atomoxetine [From [facility]AT[facility]] Allergy Unknown Verified 04/18/24 14:58 Exam Vital Signs (past 8 hours): - 05/16/24 07:18 Temperature 97.1 F L Pulse Rate 67 Respiratory Rate 18 Blood Pressure 133/83 Pulse Oximetry 94 Oxygen Delivery Method Room Air Oxygen Delivery Method Room Air Const General: No acute distress Resp Effort & Inspection: normal respiratory effort Assessment & Plan Assessment and plan (1) Hx of colonic polyps: Status: Acute Plan Colonoscopy Time-Based Coding :: [TOTAL MINUTES] spent with patient and on the chart (including review of chart, obtaining history, exam, reviewing outside data, placing orders, documenting exam and treatment plan, and counseling patient) on [DATE].
[2024-05-16 08:18] VITALS: BP 85/58; PULSE 83; RESP 10; TEMP 36.2; O2SAT 97
--- NOTE | 2024-05-16 08:18 | PM.OP.COLON ---
Operative Date/Time/Diagnoses Date of procedure: 05/16/24 Time of procedure: 08:18 Pre-op diagnosis: History of polyps Post-op diagnosis: same Procedure & Clinicians Study performed: Colonoscopy Same procedure as scheduled: Yes Surgeon: Nico Marino Procedure Notes Procedure in detail: Surgeon: Nico Marino MD Anesthesia: Fareed Gross CRNA Procedure: The patient was brought to the endoscopy suite, placed in left lateral decubitus position. The patient was connected to monitoring devices. A time-out was performed. Sedation was administered. Once the patient was adequately sedated, a digital rectal exam was performed and was normal. The scope was then inserted and advanced to the cecum where the appendiceal orifice was identified and photographed. The scope was then slowly withdrawn over greater than 6 minutes. The mucosa was thoroughly inspected. There was a small polyp in the cecum, roughly 3 mm, removed with the Jumbo forceps. There was moderate sigmoid colon diverticulosis. The scope was retroflexed in the rectum. No other abnormalities were found. The scope was straightened and removed. The patient was awakened and brought to recovery. Scope withdrawal time: 8 minutes Sedation time: 13 minutes EBL: 3 mL Findings: Diminutive polyp in the cecum, sigmoid colon diverticulosis Post-procedure Disposition: PACU
[2024-05-16 08:21] VITALS: BP 100/74; PULSE 88; RESP 17; O2SAT 4
== END 2024-05-16 09:00 | disposition home or self-care (01) ==
PROVIDERS: PCP Family Medicine; Referring Provider Surgery; Visit Provider Surgery
PROC: 0DJD8ZZ Inspection of Lower Intestinal Tract, Via Natural or Artificial Opening Endoscopic (ICD-10-PCS; CPT 45378; principal; 2024-05-16 07:45)
DX: Z12.11 Encounter for screening for malignant neoplasm of colon (principal); Z86.0100 Personal history of colon polyps, unspecified; K57.30 Diverticulosis of large intestine without perforation or abscess without bleeding; D12.0 Benign neoplasm of cecum
CPT/HCPCS: 45380; J2704

== ENCOUNTER → 2025-03-07 10:52 | Outpatient (CLI) | payer MEDICARE, SELFPAY ==
[2025-03-07 13:15] LABS: Add Manual Diff / Slide Review NO; Hematocrit 40.4 % (41-53); Hemoglobin 13.6 g/dL (13.5-17.5); Lymphocytes Absolute Auto 1000 /uL (1100-4500); Mean Corpuscular HGB Conc 33.5 % (30-36); Mean Corpuscular Hemoglobin 31.6 PG (26-34); Mean Corpuscular Volume 94.2 fL (80-100); Platelet Count 304 X10^3/uL (150-400)
[2025-03-07 13:27] LABS: Alanine Aminotransferase 28 IU/L (<50); Albumin 4.2 g/dL (3.5-5.0); Albumin Globulin Ratio 1.5 (1.0-2.8); Alkaline Phosphatase 114 U/L (38-126); Blood Urea Nitrogen 22 mg/dL (9-20); Calcium 9.1 mg/dL (8.4-10.2); Carbon Dioxide 24 mmol/L (22-32); Chloride 102 mmol/L (98-107); Estimated Glomerular Filt Rate 47 mL/min (>60); Globulin 2.8 g/dL (1.7-4.1); Glucose 85 mg/dL (70-99); HEMOLYSIS < 15 (0-50); Potassium 5.0 mmol/L (3.4-5.1); Sodium 135 mmol/L (137-145); Total Protein 7.0 g/dL (6.3-8.2)
[2025-03-07 13:55] LABS: TSH w/ Reflex to FT4 3.42 uIU/mL (0.47-4.68)
== END ==
LOC: LAB 10:53
PROVIDERS: PCP Family Medicine; Referring Provider Family Medicine; Visit Provider Family Medicine
DX: I10 Essential (primary) hypertension (principal); N18.32 Chronic kidney disease, stage 3b
CPT/HCPCS: 36415; 80053; 84443; 85025